=== PATIENT | female | born 1985 | race Caucasian/White ===

== ENCOUNTER → 2017-10-25 | Day surgery (SDC) | payer BC, OTHER ==
[~2017-10-25] MED LIST: Acetaminophen/oxyCODONE 325-5 MG Tab PO ONE; Bupivacaine 0.5% 30 ML SDV ONE; Dexamethasone 4 MG/ML SDV ONE; HYDROmorphone 0.5 MG/0.5 ML Syringe IVPUSH PRN; HYDROmorphone 1 MG/ML Syringe ONE; Ketorolac 30 MG/ML SDV ONE; Lactated Ringers 1,000 ML IV SCH; Lactated Ringers 1,000 ML ONE; Lidocaine 1%/Sod Bicarbonate in NS 8.4% 1 ML Syringe IV PRN; Metoclopramide 10 MG/2 ML SDV IVPUSH PRN; Midazolam 1 MG/ML 2 ML SDV ONE; Neostigmine Methylsulfate 10 MG/10 ML MDV ONE; Ondansetron 4 MG/2 ML SDV IVPUSH PRN; Ondansetron 4 MG/2 ML SDV ONE; Propofol 200 MG/20 ML SDV ONE; Rocuronium 50 MG/5 ML Vial ONE; Sodium Chloride 0.9% 10 ML Syringe FLUSH PRN; ceFAZolin 1 GM Vial ONE; fentaNYL 100 MCG/2 ML SDV IVPUSH PRN; fentaNYL 250 MCG/5 ML SDV ONE
--- NOTE | 2017-10-25 10:21 | PCM.PREANE ---
Preanesthetic Assessment - Anesthesia/Transfusion/Family Hx Anesthesia History: Prior Anesthesia Without Reaction Family History of Anesthesia Reaction: No Transfusion History: No Prior Transfusion(s) - Review of Systems General: No Symptoms Pulmonary: No Symptoms Cardiovascular: No Symptoms Gastrointestinal: No Symptoms Neurological: Other (migraines) Other: Reports: Thyroid Problems, Neck Pain, Depression, Anxiety - Physical Assessment NPO Status Date: 10/24/17 NPO Status Time: 22:30 Pulse: 89 O2 Sat by Pulse Oximetry: 97 Respiratory Rate: 16 Blood Pressure: 121/84 Temperature: 37.1 C Weight: 60 kg ASA Class: 2 Mental Status: Alert & Oriented x3 Airway Class: Mallampati = 2 Dentition: Reports: Normal Dentition Thyro-Mental Finger Breadths: 3 Mouth Opening Finger Breadths: 3 ROM/Head Extension: Full Lungs: Clear to Auscultation, Normal Respiratory Effort Cardiovascular: Regular Rate, Regular Rhythm - Lab Values: Laboratory Last Values WBC 8.59 K/mm3 (3.98-10.04) 10/24/17 12:06 RBC 5.19 M/mm3 (3.98-5.22) 10/24/17 12:06 Hgb 14.9 gm/L (11.2-15.7) 10/24/17 12:06 Hct 43.5 % (34.1-44.9) 10/24/17 12:06 MCV 83.8 fl (79.4-94.8) 10/24/17 12:06 MCH 28.7 pg (25.6-32.2) 10/24/17 12:06 MCHC 34.3 g/dl (32.2-35.5) 10/24/17 12:06 RDW Std Deviation 39.9 fL (36.4-46.3) 10/24/17 12:06 Plt Count 318 K/mm3 (182-369) 10/24/17 12:06 MPV 10.0 fl (9.4-12.3) 10/24/17 12:06 Neut % (Auto) 69.8 % (34.0-71.1) 10/24/17 12:06 Lymph % (Auto) 25.0 % (19.3-51.7) 10/24/17 12:06 [place] % (Auto) 4.2 % (4.7-12.5) L 10/24/17 12:06 Eos % (Auto) 0.6 (0.7-5.8) L 10/24/17 12:06 Baso % (Auto) 0.3 % (0.1-1.2) 10/24/17 12:06 Neut # (Auto) 5.99 K/mm3 (1.56-6.13) 10/24/17 12:06 Lymph # (Auto) 2.15 K/mm3 (1.18-3.74) 10/24/17 12:06 [place] # (Auto) 0.36 K/mm3 (0.24-0.36) 10/24/17 12:06 Eos # (Auto) 0.05 K/mm3 (0.04-0.36) 10/24/17 12:06 Baso # (Auto) 0.03 K/mm3 (0.01-0.08) 10/24/17 12:06 HCG, Quant < 1.0 mIU/mL 10/24/17 12:06 Blood Type A POSITIVE 10/24/17 12:06 - Allergies Allergies/Adverse Reactions: Allergies Allergy/AdvReac Type Severity Reaction Status Date / Time bacitracin Allergy Rash Verified 10/24/17 15:28 Penicillins AdvReac Vomiting Verified 10/24/17 15:28 - Blood Blood Available: No Product(s) Available: None - Anesthesia Plan Pre-Op Medication Ordered: None - Acknowledgements Anesthesia Type Planned: General Anesthesia Pt an Appropriate Candidate for the Planned Anesthesia: Yes Alternatives and Risks of Anesthesia Discussed w Pt/Guardian: Yes Pt/Guardian Understands and Agrees with Anesthesia Plan: Yes PreAnesthesia Questionnaire HEENT History: Reports: Impaired Vision, Other (See Below) Other HEENT History: wears glasses Cardiovascular History: Reports: None Respiratory History: Reports: None Gastrointestinal History: Reports: Chronic Constipation, GERD Genitourinary History: Reports: None 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: 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, 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 Other OB/BYN History: dyspareunia, intermenstrual bleeding, metorrhagia, pelvic pain, retroflexion of uterus---hysterectomy Musculoskeletal History: Reports: Neck Pain, Chronic Other Musculoskeletal History: foot surgery, diastasis recti, neck pain Neurological History: Reports: Migraines Psychiatric History: Reports: Anxiety Endocrine/Metabolic History: Reports: Hypothyroidism Hematologic History: Reports: None Immunologic History: Reports: None Oncologic (Cancer) History: Reports: Malignant Melanoma Dermatologic History: Reports: Melanoma - Past Surgical History HEENT Surgical History: Reports: None Cardiovascular Surgical History: Reports: None Respiratory Surgical History: Reports: None GI Surgical History: Reports: Hernia, Inguinal Female Surgical History: Reports: Section, Hysterectomy Male Surgical History: Reports: None Endocrine Surgical History: Reports: None Neurological Surgical History: Reports: Other (See Below) Other Neurological Surgeries/Procedures: cervical fusion Musculoskeletal Surgical History: Reports: ORIF, Other (See Below) Other Musculoskeletal Surgeries/Procedures:: right foot ankle sugery x2 Oncologic Surgical History: Reports: Other (See Below) Other Oncologic Surgeries/Procedures: melanoma removed Dermatological Surgical History: Reports: Skin Biopsy, Other (See Below) - SUBSTANCE USE Smoking Status *Q: Never Smoker Second Hand Smoke Exposure: No Recreational Drug Use History: No - HOME MEDS Home Medications: Home Meds Levothyroxine Sodium [Synthroid] 75 mcg PO DAILY 06/15/16 [History] Cyclobenzaprine [Flexeril] 10 mg PO TID PRN #20 tablet 12/09/16 [Rx] SUMAtriptan Succinate [Imitrex] 50 mg PO ASDIRECTED 10/24/17 [History] Sertraline [Zoloft] 50 mg PO DAILY 10/24/17 [History] - CURRENT (IN HOUSE) MEDS Current Meds: Current Medications Lactated Ringer's (Ringers, Lactated) 1,000 mls @ 125 mls/hr IV ASDIRECTED CRISSY Stop: 10/25/17 23:00 Lidocaine/Sodium Bicarbonate (Buffered Lidocaine 1% In Ns 8.4%) 0.25 ml IV ONETIME PRN PRN Reason: Prior to IV Start Stop: 10/25/17 18:00 Sodium Chloride (Saline Flush) 10 ml FLUSH ASDIRECTED PRN PRN Reason: Keep Vein Open Stop: 10/25/17 18:00 Discontinued Medications Cefazolin Sodium (Ancef) Confirm Administered Dose 2 gm .ROUTE .STK-MED ONE Stop: 10/25/17 08:50 Dexamethasone (Dexamethasone) Confirm Administered Dose 8 mg .ROUTE .STK-MED ONE Stop: 10/25/17 08:50 Fentanyl (Sublimaze) Confirm Administered Dose 250 mcg .ROUTE .STK-MED ONE Stop: 10/25/17 08:51 Hydromorphone HCl (Dilaudid) Confirm Administered Dose 1 mg .ROUTE .STK-MED ONE Stop: 10/25/17 08:50 Midazolam HCl (Versed 1 Mg/Ml) Confirm Administered Dose 2 mg .ROUTE .STK-MED ONE Stop: 10/25/17 08:50 Ondansetron HCl (Zofran) Confirm Administered Dose 4 mg .ROUTE .STK-MED ONE Stop: 10/25/17 08:50 Propofol (Diprivan 20 Ml) Confirm Administered Dose 200 mg .ROUTE .STK-MED ONE Stop: 10/25/17 08:50 Rocuronium [place] (Zemuron) Confirm Administered Dose 50 mg .ROUTE .STK-MED ONE Stop: 10/25/17 08:50
--- NOTE | 2017-10-25 13:09 | PCM.POSTAN ---
POST ANESTHESIA ASSESSMENT - MENTAL STATUS Mental Status: Alert, Oriented - VITAL SIGNS Pulse Rate: 120 SaO2: 100 Resp Rate: 16 Blood Pressure: 123/73 Temperature: 36.2 C - RESPIRATORY Respiratory Status: Respiratory Rate WNL, Airway Patent, O2 Saturation Stable, Supplemental Oxygen - CARDIOVASCULAR CV Status: Pulse Rate WNL, Blood Pressure Stable - GASTROINTESTINAL GI Status: No Symptoms - PAIN Pain Score: 4 (fentanyl and hydromorphone given) - POST OP HYDRATION Hydration Status: Adequate & Stable
--- NOTE | 2017-10-25 13:34 | PCM.OPNOTE ---
- General Post-Op/Procedure Note Date of Surgery/Procedure: 10/25/17 Operative Procedure(s): Laparoscopic left oophorectomy (76615) Pre Op Diagnosis: Pelvic pain, history of endometriosis previously diagnosed at laparoscopy in surgery. Post-Op Diagnosis: Same plus filmy adhesions of the left ovary Anesthesia Technique: General ET Tube Primary Surgeon: Reagan Devine Secondary Surgeon: Luis Irby Anesthesia Provider: Brigida Menchaca Worm Picker: Alona Carroll ([facility]) Reason Worm Picker Was Necessary: Asst. surgery, decrease comorbidity and co-mortality. Role of Worm Picker: Asst. surgery, decrease comorbidity and co-mortality. Fluid Replacement, Intraop: 1,800 Output, Urine Amount: 200 EBL in mLs: 10 Drain/Tube Comments:: None Complications: None Condition: Good Free Text/Narrative:: Patient was transported to the operating room and medical office building. SCDs in place and functioning prior surgery. Ancef 2 g given intravenously prior surgery. Patient was placed under general anesthesia with endotracheal intubation the low dorsal lithotomy position. Timeout performed confirming name date of and procedure as laparoscopy possible removal of one or both ovaries (the left ovary was removed the right ovary was not removed) the examination under anesthesia revealed no adnexal masses both ovaries were palpable. Larios catheter was placed gravity drainage after the patient was prepared and draped in sterile fashion. Sponge stick was placed in the vagina for assistance in manipulation if needed. It was removed at the end the procedure, As was a Larios catheter. The area of the planned umbilical incision was injected with 2 mL of 0.5% Marcaine without epinephrine and midline where prior incisions had been made was also injected with 2 mL of 0.5% Marcaine. 5 mm incision was made at the umbilicus the varies needle was introduced and pneumoperitoneum was obtained and the 5 mm port was then introduced. Prompt visualization of pelvic organs was accomplished the midline suprapubic incision was made 5 mm in width 5 mm trocar was introduced. The left and not right ovaries were examined. The right ovary was normal the corpus luteum cyst of the right ovary was noted. The left ovary had some filmy adhesions and one small cyst. Left flank incision was then made by transilluminating the abdomen injecting 2 mL of 0.5% Marcaine without epinephrine and placing the 5 mm port on the left side. The left ovary was grasp and utilizing the Enseal the left ovary was removed. The right ovary was not removed. The liver and gallbladder were visualized the appendix could not be visualized. Hemostasis was normal in the area of the left oophorectomy. To remove the left ovary a 10 mm trocar was then introduced at the suprapubic incision extending the incision by 5 mm. Introducing the Endo bag the ovary was placed into the Endobag and the ovary was removed through the suprapubic incision. Utilizing Wagner Nava closure for the anterior fascia and peritoneum introducing 0 Vicryl and the anterior fascia was closed to prevent hernia formation hopefully. No bleeding. The left flank trocar was then removed and no bleeding the pneumoperitoneum was reduced. The umbilical trocar was removed. The 3 incisions were closed with 3-0 Monocryl subcuticular suture the suprapubic incision prior to closure with the 3-0 Monocryl a interrupted suture of 0 Monocryl was placed in the subcutaneous tissue. Sponge needle pack asthma sharp count were correct 2. The Larios catheter was removed. The sponge stick that had been placed into the vagina for manipulation was removed as well. Patient was transported postanesthesia care unit in satisfactory condition. At 1300 hrs. a talked with Jose Roberto and her and gave him a report of her surgery and all questions answered to his voiced satisfaction. Photos taken total of 11. Image 001 through 005 were of the left ovary showing filmy adhesions simple cyst no endometriosis. Image 006 is the right ovary. The right ovary was not removed. Image 007 shows the liver and gallbladder with no perihepatic adhesions. Image 008 shows area of the appendix but the appendix was not able to be visualized. Image 009 shows the operative site after removal of the left ovary with no bleeding. Image 010 shows the left flank incision with no bleeding after removal of the trocar. Image 011 shows the suprapubic incision after closure with no bleeding. Patient given prescription for Percocet 5/325 dispense 15 take 1 by mouth every 6 hours when necessary pain
[2017-10-25 15:48] VITALS: BP 129/76
== END | disposition home or self-care (01) ==
LOC: JD.SDS 09:53
PROVIDERS: ATTEND Obstetrics & Gynecology
DX: N83.292 Other ovarian cyst, left side (principal); N80.9 Endometriosis, unspecified; K59.09 Other constipation; K21.9 Gastro-esophageal reflux disease without esophagitis; G43.909 Migraine, unspecified, not intractable, without status migrainosus; M62.08 Separation of muscle (nontraumatic), other site; N94.10 Unspecified dyspareunia; F41.9 Anxiety disorder, unspecified; E03.9 Hypothyroidism, unspecified; Z88.0 Allergy status to penicillin; Z88.8 Allergy status to other drugs, medicaments and biological substances; Z79.899 Other long term (current) drug therapy; Z85.820 Personal history of malignant melanoma of skin; Z83.3 Family history of diabetes mellitus; Z90.710 Acquired absence of both cervix and uterus; Z98.890 Other specified postprocedural states
CPT/HCPCS: 36415; 58661; 84702; 85025; 86900; 86901; A9270; J0690; J1100; J1170; J1885; J2250; J2405; J2710; J3010; J7120; 00840; J2704

== ENCOUNTER 2018-01-02 18:44 | Emergency (ER) | payer BC ==
[2018-01-02 19:07] VITALS: BP 147/98
[2018-01-02] MEDS ORDERED: Sodium Chloride 0.9% 10 ML Syringe FLUSH PRN (19:55)
--- NOTE | 2018-01-02 20:03 | EDM.PDOC ---
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 Patient states at approximately 1630 developed sudden onset of throbbing sharp pain to the left adnexa with sensation she urinated all over herself. Upon examination of her panty liner there was greenish discharge with blood. Patient states she saturated a pad every hour for the next few hours that has slowly tapered down. Currently patient continues to have severe pain to the left adnexal region. She was informed by Dr. 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 Bleeding is scant at this point. No abnormal discharge at this point. She does have a history of endometriosis with partial hysterectomy 2 years ago. This past October patient had her left ovary removed. Right ovary remains. Patient does have a history of adhesions. Pain is currently a 8 out of 10. Pain is worse with moving and also going to the bathroom. She denies any fever, nausea/vomiting, diarrhea, or history of STDs. Preg history includes 3 para 2 with one miscarriage. Treatments MUTUAL FUND MANAGER: Reports: NSAIDS Pelvic Pain Score (Numeric/FACES): 8 - Related Data Allergies Allergy/AdvReac Type Severity Reaction Status Date / Time bacitracin Allergy Rash Verified 01/02/18 19:07 Penicillins AdvReac Vomiting Verified 01/02/18 19:07 Home Meds: Home Meds Levothyroxine Sodium [Synthroid] 75 mcg PO DAILY 06/15/16 [History] SUMAtriptan Succinate [Imitrex] 50 mg PO ASDIRECTED 10/24/17 [History] Sertraline [Zoloft] 50 mg PO DAILY 10/24/17 [History] Cyclobenzaprine [Flexeril] 10 mg PO TID PRN #90 tablet 10/25/17 [Rx] oxyCODONE HCl/Acetaminophen [Percocet 5-325 mg Tablet] 1 each PO Q6H #15 tablet 10/25/17 [Rx] Past Medical History HEENT History: Reports: Other (See Below) Other HEENT History: wears glasses Cardiovascular History: Reports: None Respiratory History: Reports: None Gastrointestinal History: Reports: Chronic Constipation, GERD Genitourinary History: Reports: None 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 Other OB/BYN History: dyspareunia, intermenstrual bleeding, metorrhagia, pelvic pain, retroflexion of uterus---hysterectomy done to fix problems Musculoskeletal History: Reports: Neck Pain, Chronic Other Musculoskeletal History: foot surgery Neurological History: Reports: Migraines Psychiatric History: Reports: Anxiety Endocrine/Metabolic History: Reports: Hypothyroidism Hematologic History: Reports: None Immunologic History: Reports: None Oncologic (Cancer) History: Reports: Malignant Melanoma Dermatologic History: Reports: Melanoma - Past Surgical History Cardiovascular Surgical History: Reports: None Respiratory Surgical History: Reports: None GI Surgical History: Reports: None Other GI Surgeries/Procedures: inguinal hernia repair Female Surgical History: Reports: Section, Hysterectomy, Other (See Below) Other Female Surgeries/Procedures: cervix removed, fallopian tubes removed, left ovary removed Endocrine Surgical History: Reports: None Neurological Surgical History: Reports: None Oncologic Surgical History: Reports: Other (See Below) Other Oncologic Surgeries/Procedures: melanoma removed Dermatological Surgical History: Reports: Skin Biopsy, Other (See Below) Social & Family History - Family History Family Medical History: Noncontributory - Tobacco Use Smoking Status *Q: Never Smoker Second Hand Smoke Exposure: No - Caffeine Use Caffeine Use: Reports: None - Recreational Drug Use Recreational Drug Use: No Drug Use in Last 12 Months: No ED ROS GENERAL - Review of Systems Review Of Systems: ROS reveals no pertinent complaints other than HPI. ED EXAM, RENAL/ - Physical Exam Exam: See Below Exam Limited By: No Limitations General Appearance: Alert, WD/WN, Mild Distress Ears: Hearing Grossly Normal Nose: Normal Inspection Throat/Mouth: Normal Voice, No Airway Compromise Neck: Normal Inspection, Supple Respiratory/Chest: No Respiratory Distress, Lungs Clear, Normal Breath Sounds, No Accessory Muscle Use Cardiovascular: Normal Peripheral Pulses, Regular Rate, Rhythm GI/Abdominal: Normal Bowel Sounds, Soft, Tender (left adnexa) Back Exam: Normal Inspection. No: CVA Tenderness (L), CVA Tenderness (R) Neurological: Alert, Oriented, CN II-XII Intact, Normal Cognition, No Motor/ Sensory Deficits Psychiatric: Normal Affect, Normal Mood Skin Exam: Warm, Dry, Intact, Normal Color, No Rash Course - Vital Signs Last Recorded V/S: Last Vital Signs Temp 98.4 F 01/02/18 19:00 Pulse 98 01/02/18 19:00 Resp 18 01/02/18 19:00 BP 147/98 H 01/02/18 19:00 Pulse Ox 100 01/02/18 19:00 - Orders/Labs/Meds Orders: Active Orders 24 hr Category Date Time Status Peripheral IV Care [RC] . DIRECTED Care 01/02/18 19:55 Active Pelvis Non OB Ltd [US] Stat Exams 01/02/18 19:55 Taken Sodium Chloride 0.9% [Saline Flush] Med 01/02/18 19:55 Active 10 ml FLUSH ASDIRECTED PRN Peripheral IV Insertion Adult [OM.PC] Stat Oth 01/02/18 19:53 Ordered Medication Orders Sodium Chloride (Saline Flush) 10 ml FLUSH ASDIRECTED PRN PRN Reason: Keep Vein Open Last Admin: 01/02/18 20:17 Dose: 10 ml Labs: Laboratory Tests 01/02/18 01/02/18 01/02/18 Range/Units 20:21 20:45 20:45 WBC 9.60 (3.98-10.04) K/mm3 RBC 4.78 (3.98-5.22) M/mm3 Hgb 13.7 (11.2-15.7) gm/L Hct 39.7 (34.1-44.9) % MCV 83.1 (79.4-94.8) fl MCH 28.7 (25.6-32.2) pg MCHC 34.5 (32.2-35.5) g/dl RDW Std Deviation 41.9 (36.4-46.3) fL Plt Count 262 (182-369) K/mm3 MPV 10.7 (9.4-12.3) fl Neut % (Auto) 66.6 (34.0-71.1) % Lymph % (Auto) 27.1 (19.3-51.7) % [place] % (Auto) 5.3 (4.7-12.5) % Eos % (Auto) 0.5 L (0.7-5.8) Baso % (Auto) 0.3 (0.1-1.2) % Neut # (Auto) 6.39 H (1.56-6.13) K/mm3 Lymph # (Auto) 2.60 (1.18-3.74) K/mm3 [place] # (Auto) 0.51 H (0.24-0.36) K/mm3 Eos # (Auto) 0.05 (0.04-0.36) K/mm3 Baso # (Auto) 0.03 (0.01-0.08) K/mm3 Sodium 141 (136-145) mEq/L Potassium 3.5 (3.5-5.1) mEq/L Chloride 105 (98-107) mEq/L Carbon Dioxide 23 (21-32) mEq/L Anion Gap 16.5 H (5-15) BUN 7 (7-18) mg/dL Creatinine 0.8 (0.55-1.02) mg/dL Est Cr Clr Drug Dosing 72.52 mL/min Estimated GFR (MDRD) > 60 (>60) mL/min BUN/Creatinine Ratio 8.8 L (14-18) Glucose 101 (74-106) mg/dL Calcium 8.9 (8.5-10.1) mg/dL Total Bilirubin 0.2 (0.2-1.0) mg/dL AST 16 (15-37) U/L ALT 28 (14-59) U/L Alkaline Phosphatase 80 (46-116) U/L C-Reactive Protein < 0.2 (<1.0) mg/dL Total Protein 7.5 (6.4-8.2) g/dl Albumin 4.1 (3.4-5.0) g/dl Globulin 3.4 gm/dL Albumin/Globulin Ratio 1.2 (1-2) Urine Color Yellow (Yellow) Urine Appearance Clear (Clear) Urine pH 6.0 (5.0-8.0) Ur Specific [place] 1.020 (1.005-1.030) Urine Protein Negative (Negative) Urine Glucose (UA) Negative (Negative) Urine Ketones Negative (Negative) Urine Occult Blood Negative (Negative) Urine Nitrite Negative (Negative) Urine Bilirubin Negative (Negative) Urine Urobilinogen 0.2 (0.2-1.0) Ur Leukocyte Esterase Trace H (Negative) Urine RBC 0-5 (0-5) /hpf Urine WBC 0-5 (0-5) /hpf Ur Epithelial Cells 0-5 (0-5) /hpf Urine Bacteria Few (FEW) /hpf Urine Mucus Many H (FEW) /hpf Meds: Medications Generic Name Dose Route Start Last Admin Trade Name Lis PRN Reason Stop Dose Admin Sodium Chloride 10 ml 01/02/18 19:55 01/02/18 20:17 Saline Flush FLUSH 10 ml ASDIRECTED PRN Administration Keep Vein Open Discontinued Medications Generic Name Dose Route Start Last Admin Trade Name Lis PRN Reason Stop Dose Admin Hydromorphone HCl 0.5 mg 01/02/18 19:57 01/02/18 21:49 Dilaudid IVPUSH 01/02/18 19:58 0.5 mg ONETIME ONE Administration Hydromorphone HCl 0.5 mg 01/02/18 21:42 01/02/18 21:51 Dilaudid IVPUSH 01/02/18 21:43 Not Given ONETIME ONE Hydromorphone HCl Confirm 01/02/18 21:53 01/02/18 22:25 Dilaudid Administered 01/02/18 21:54 Not Given Dose 0.5 mg .ROUTE .STK-MED ONE Oxycodone HCl 5 mg 01/02/18 22:25 01/02/18 22:31 Oxycodone PO 01/02/18 22:26 5 mg ONETIME ONE Administration - Re-Assessments/Exams Free Text/Narrative Re-Assessment/Exam: IV established with dilaudid 0.5mg IVP. Labs ordered include: CBC,C14, CRP, and UA. Ordered transvaginal non ob ultrasound. Vaginal exam with speculum. Vaginal cuff is intact with no obvious source of bleeding or abnormal vaginal discharge. No abnormal discharge or blood present. Labs reviewed: CBC essentially normal. Chemistry panel was essentially normal as well. CRP within normal limits. Ultrasound obtained. Patient complains of pain post ultrasound. Dilaudid 0.5 mg IVP ordered. UA trace leukocyte Esterace with your mucus present. No additional concerning findings. 01/02/18 21:57 Ultrasound impression: Hysterectomy. Status post left oophorectomy. 3 cm right ovarian simple cyst. Discuss results with the patient. Will discharge patient home with instructions as documented. She'll see Dr. Devine tomorrow at 1300 hrs. 01/02/18 22:26 We have changed the Dilaudid to oxycodone 5 mg by mouth. Departure - Departure Time of Disposition: 21:58 Disposition: Home, Self-Care 01 Condition: Good Clinical Impression: Adnexal pain, Vaginal discharge, Vaginal bleeding - Discharge Information Instructions: Pelvic Pain, Female Referrals: Reagan Devine MD [Physician] - Forms: ED Department Discharge Additional Instructions: As discussed unclear etiology current complaint. Ultrasound and labs were essentially normal. Speculum exam did not reveal any concerning findings. At this point will have you take Tylenol and ibuprofen in alternating fashion for pain. Utilize [place] one tab every 6 hours as needed for severe pain. Do not take with Tylenol. No driving this evening or while taking the [place]. Follow-up with Dr. Devine as scheduled tomorrow at 1300 hrs. Return to the ED if you develop any new or worsening symptoms. - My Orders Last 24 Hours: My Active Orders 01/02/18 19:53 Peripheral IV Insertion Adult [OM.PC] Stat 01/02/18 19:55 Peripheral IV Care [RC] . DIRECTED Pelvis Non OB Ltd [US] Stat Sodium Chloride 0.9% [Saline Flush] 10 ml FLUSH ASDIRECTED PRN - Assessment/Plan Last 24 Hours: My Active Orders 01/02/18 19:53 Peripheral IV Insertion Adult [OM.PC] Stat 01/02/18 19:55 Peripheral IV Care [RC] . DIRECTED Pelvis Non OB Ltd [US] Stat Sodium Chloride 0.9% [Saline Flush] 10 ml FLUSH ASDIRECTED PRN
[2018-01-02] MEDS: HYDROmorphone 0.5 MG/0.5 ML SYRINGE IVPUSH ONE ×2 (20:17→21:49)
[2018-01-02] MEDS ORDERED: HYDROmorphone 1 MG/ML Syringe IVPUSH ONE (21:42)
[2018-01-02] MEDS ORDERED: HYDROmorphone 0.5 MG/0.5 ML SYRINGE ONE (21:53)
[2018-01-02] MEDS ORDERED: oxyCODONE 5 MG Tab PO ONE (22:25)
--- NOTE | 2018-01-03 07:13 | US ---
Pelvic ultrasound: Multiple real-time images of the pelvis were obtained transvaginally. Comparison: Previous hysterectomy is noted. Left ovary not visualized with note stating previous oophorectomy. Simple cyst is noted within the right ovary measuring 3.0 cm. No free fluid is seen. Measurements: Right ovary: 5.2 x 1.8 x 3.2 cm Impression: 1. 3.0 cm simple cyst within the right ovary. No free fluid is seen. 2. Prior hysterectomy and left oophorectomy. Diagnostic code #2 I agree with preliminary report issued by [facility] ([facility] preliminary report dictated on 01/02/18, 10:51 PM Central Time)
== END 2018-01-02 22:40 | disposition home or self-care (01) ==
LOC: JD.ED 18:44
DX: N93.9 Abnormal uterine and vaginal bleeding, unspecified (principal); N89.8 Other specified noninflammatory disorders of vagina; R10.2 Pelvic and perineal pain; Z90.710 Acquired absence of both cervix and uterus; E03.9 Hypothyroidism, unspecified; Z79.899 Other long term (current) drug therapy; Z88.0 Allergy status to penicillin; Z88.1 Allergy status to other antibiotic agents
CPT/HCPCS: 36415; 76857; 80053; 81001; 85025; 86140; 96374; 96376; 99284; A9270; J1170; J7050

== ENCOUNTER 2018-01-06 19:04 | Emergency (ER) | payer BC ==
[2018-01-06 19:30] VITALS: BP 117/79
[2018-01-06] MEDS ORDERED: Ketorolac 60 MG/2 ML SDV IM ONE (20:28)
--- NOTE | 2018-01-06 20:29 | EDM.PDOC ---
ED HPI GENERAL MEDICAL PROBLEM - General Chief Complaint: Abdominal Pain Stated Complaint: poss left side cyst ruptured Time Seen by Provider: 01/06/18 19:27 Source of Information: Reports: Patient, Old Records History Limitations: Reports: No Limitations - History of Present Illness INITIAL COMMENTS - FREE TEXT/NARRATIVE: Medical records indicate that the patient was seen by Jad Buster in this ED on 01/02/2018 with a complaint of left adnexal pain. She reported at time that she had a greenish and bloody vaginal discharge. She stated that she had a history of endometriosis and adhesions, status post a partial hysterectomy 2 years ago, followed by a left oophorectomy this past October 2017. Her right ovary remains. The record indicates that she was tender to her left pelvis. Workup included a CBC, CMP, C-reactive protein, and urinalysis, all of which were completely normal. On pelvic exam, despite the patient's claim of having a greenish and bloody discharge, her examination was completely normal with no discharge, blood, or visible source of bleeding. A transvaginal ultrasound found a 3.0 cm simple cyst within the right ovary, with no free fluid seen and noted a prior hysterectomy with left oophorectomy. The patient received a total of 1.5 mg of IV Dilaudid and 5 mg of oxycodone before being discharged home with a prescription for 10 tablets of [place] 5/325. She had an appointment to follow-up with Dr. Devine the following day, on 01/03/2018, at 13:00. The patient now returns to the ED stating that she continues to have left pelvic pain, and is concerned that she has ruptured an ovarian cyst. She states that she did not follow-up with Dr. Devine, and that she has an appointment to see Dr. Soto on , and Dr. Thompson, a Hearing Aid Consultant in [place], on 01/23/2018. I pointed out to the patient that she cannot have a left ovarian cyst, as she does not have a left ovary. She stated that she was told by Mr. Goins that he had found a cyst at the vaginal surgical line, and that he believed that it was this cyst that had ruptured and bled. Mr. Goins's medical record does not indicate any of that. Additionally, as luck would have it, Mr. Goins is working tonight and he confirms that he found no abnormality on the patient's pelvic exam on 01/02/2018, and he feels that the patient was drug-seeking. Left Pelvic Pain Score (Numeric/FACES): 8 - Related Data Allergies Allergy/AdvReac Type Severity Reaction Status Date / Time bacitracin Allergy Rash Verified 01/02/18 19:07 Penicillins AdvReac Vomiting Verified 01/02/18 19:07 Home Meds: Home Meds Levothyroxine Sodium [Synthroid] 100 mcg PO DAILY 06/15/16 [History] ALPRAZolam [Xanax] 0.5 mg PO QID 01/06/18 [History] Methocarbamol [Robaxin] 500 - 1,000 mg PO QID PRN 01/06/18 [History] Topiramate 50 mg PO BID 01/06/18 [History] Past Medical History HEENT History: Reports: Other (See Below) Other HEENT History: wears glasses Gastrointestinal History: Reports: GERD SIDE BOSS History: Reports: 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 Neurological History: Reports: Migraines Psychiatric History: Reports: Anxiety Endocrine/Metabolic History: Reports: Hypothyroidism Oncologic (Cancer) History: Reports: Malignant Melanoma - Past Surgical History GI Surgical History: Reports: Hernia, Inguinal Female Surgical History: Reports: Section, Hysterectomy, Oophorectomy (left, 10/25/2017) Oncologic Surgical History: Reports: Other (See Below) (Melanoma excised) Dermatological Surgical History: Reports: Skin Biopsy Social & Family History - Family History Family Medical History: Noncontributory - Tobacco Use Smoking Status *Q: Never Smoker Second Hand Smoke Exposure: No - Caffeine Use Caffeine Use: Reports: None - Alcohol Use Alcohol Use History: No - Recreational Drug Use Recreational Drug Use: No ED ROS GENERAL - Review of Systems Review Of Systems: ROS reveals no pertinent complaints other than HPI. ED EXAM, RENAL/ - Physical Exam Exam: See Below Exam Limited By: No Limitations General Appearance: Alert, WD/WN, No Apparent Distress Eye Exam: Bilateral Eye: Normal Inspection Ears: Normal External Exam, Hearing Grossly Normal Nose: Normal Inspection, No Blood Throat/Mouth: Normal Inspection, Normal Lips, Normal Voice, No Airway Compromise Head: Atraumatic, Normocephalic Neck: Normal Inspection, Full Range of Motion Respiratory/Chest: No Respiratory Distress, Lungs Clear, Normal Breath Sounds, No Accessory Muscle Use Cardiovascular: Normal Peripheral Pulses, Regular Rate, Rhythm, No Gallop, No JVD, No Murmur, No Rub GI/Abdominal: Normal Bowel Sounds, Soft, No Organomegaly, No Distention, No Abnormal Bruit, No Mass, Tender (Generalized, non-focal.) Rectal (Female) Exam: Deferred Back Exam: Normal Inspection, Full Range of Motion. No: CVA Tenderness (L), CVA Tenderness (R) Extremities: Normal Inspection, Normal Range of Motion, No Pedal Edema, Normal Capillary Refill Neurological: Alert, Oriented, Normal Cognition, No Motor/Sensory Deficits Psychiatric: Normal Affect Skin Exam: Warm, Dry, Intact, Normal Color, No Rash Course - Vital Signs Last Recorded V/S: Last Vital Signs Temp 37.1 C 01/06/18 19:28 Pulse 77 01/06/18 19:28 Resp 20 01/06/18 19:28 BP 117/79 01/06/18 19:28 Pulse Ox 100 01/06/18 19:28 - Orders/Labs/Meds Labs: Laboratory Tests 01/06/18 01/06/18 Range/Units 20:22 20:22 WBC 7.07 (3.98-10.04) K/mm3 RBC 4.58 (3.98-5.22) M/mm3 Hgb 13.2 (11.2-15.7) gm/L Hct 37.6 (34.1-44.9) % MCV 82.1 (79.4-94.8) fl MCH 28.8 (25.6-32.2) pg MCHC 35.1 (32.2-35.5) g/dl RDW Std Deviation 40.7 (36.4-46.3) fL Plt Count 240 (182-369) K/mm3 MPV 10.7 (9.4-12.3) fl Neutrophils % (Manual) 53 (40-60) % Band Neutrophils % 0 (0-10) % Lymphocytes % (Manual) 44 H (20-40) % Atypical Lymphs % 0 % Monocytes % (Manual) 2 (2-10) % Eosinophils % (Manual) 1 (0.7-5.8) % Basophils % (Manual) 0 L (0.1-1.2) Platelet Estimate Adequate RBC Morph Comment Normal Sodium 140 (136-145) mEq/L Potassium 3.3 L (3.5-5.1) mEq/L Chloride 106 (98-107) mEq/L Carbon Dioxide 23 (21-32) mEq/L Anion Gap 14.3 (5-15) BUN 9 (7-18) mg/dL Creatinine 0.8 (0.55-1.02) mg/dL Est Cr Clr Drug Dosing 72.52 mL/min Estimated GFR (MDRD) > 60 (>60) mL/min BUN/Creatinine Ratio 11.3 L (14-18) Glucose 111 H (74-106) mg/dL Calcium 8.7 (8.5-10.1) mg/dL Total Bilirubin 0.2 (0.2-1.0) mg/dL AST 17 (15-37) U/L ALT 25 (14-59) U/L Alkaline Phosphatase 65 (46-116) U/L Total Protein 6.6 (6.4-8.2) g/dl Albumin 3.6 (3.4-5.0) g/dl Globulin 3.0 gm/dL Albumin/Globulin Ratio 1.2 (1-2) Lipase 172 (73-393) U/L Meds: Medications Discontinued Medications Generic Name Dose Route Start Last Admin Trade Name Freq PRN Reason Stop Dose Admin Ketorolac Tromethamine 60 mg 01/06/18 20:28 01/06/18 20:37 Toradol IM 01/06/18 20:29 60 mg ONETIME ONE Administration - Re-Assessments/Exams Free Text/Narrative Re-Assessment/Exam: 01/06/18 20:29 The patient requested pain medication prior to her pelvic exam. I have ordered Toradol 60 mg IM. 01/06/18 21:13 Notified by Cruzito RICHTER that the patient appears to have eloped from the ED without notification, following her Toradol injection, but prior to her pelvic exam. Based on her history, and by my conversation with Jad Goins, it appears that the patient was drug-seeking. Departure - Departure Time of Disposition: 21:14 Disposition: Eloped 07 Condition: Undetermined Clinical Impression: Drug-seeking behavior - Discharge Information
== END 2018-01-06 21:00 | disposition left against medical advice (07) ==
LOC: JD.ED 19:04
DX: Z76.5 Malingerer [conscious simulation] (principal); R10.2 Pelvic and perineal pain; E03.9 Hypothyroidism, unspecified; G43.909 Migraine, unspecified, not intractable, without status migrainosus; Z88.0 Allergy status to penicillin; Z88.1 Allergy status to other antibiotic agents; Z79.899 Other long term (current) drug therapy; Z90.710 Acquired absence of both cervix and uterus
CPT/HCPCS: 36415; 80053; 83690; 85025; 96372; 99284; J1885; 99283

== ENCOUNTER 2018-04-23 20:43 | Emergency (ER) | payer BC, OTHER ==
[2018-04-23 21:12] VITALS: BP 114/76
[2018-04-23] MEDS ORDERED: diphenhydrAMINE 50 MG/ML SDV IM ONE (21:29)
[2018-04-23] MEDS ORDERED: Haloperidol Lactate 5 MG/ML SDV IM ONE (21:29)
[2018-04-23] MEDS ORDERED: Ondansetron 4 MG Tab.DIS PO ONE (21:29)
--- NOTE | 2018-04-23 21:42 | EDM.PDOC ---
ED HPI GENERAL MEDICAL PROBLEM - General Chief Complaint: Headache Stated Complaint: HEADACHE Time Seen by Provider: 04/23/18 21:08 Source of Information: Reports: Patient History Limitations: Reports: No Limitations - History of Present Illness INITIAL COMMENTS - FREE TEXT/NARRATIVE: Patient is a 32-year-old female with a history of migraines who presents to the ED complaining of right sided retro-orbital migraine. Patient states this has been going on and off for quite some time. Headache was gradual onset. Localized with no radiation. There's been no vision changes. No photophobia. Only minimal hyperacusis. No nausea/vomiting, numbness or tingling, weakness to the upper or lower extremities, difficulty walking, fever and/or other concerning focal neurological deficits. She denies any sinus congestion, runny nose, and or sore throat. No ear pain noted. 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 She was evaluated on 2 separate occasions in the E.D. while visiting [place] this week for similar complaints. Headache is consistent with previous episodes. She denies any activities or trauma that precipitated this headache. She took three butyl bromide tabs today.Normally is only supposed to take 1 tab every day but she has taken 3 today. In addition she takes clonazepam 0.5 mg twice a day. Xanax 0.5 mg when necessary. Zoloft, topiramate, BuSpar, Synthroid, and also Robaxin. Patient has a history of melanoma. She is scheduled to have a MRI of the brain obtained on April 26. This is in preparation to have an Botox injections. In addition PET scan is scheduled for this next Tuesday for routine surveillance for melanoma. She's also in a pain contract with Dr. Alatorre. Treatments SERVICE ASSOCIATE: Reports: Other (see below) Other Treatments SERVICE ASSOCIATE: home meds Right Headache Pain Score (Numeric/FACES): 9 - Related Data Allergies Allergy/AdvReac Type Severity Reaction Status Date / Time bacitracin Allergy Rash Verified 04/23/18 22:00 ketorolac [From Toradol] Allergy Hives Verified 04/23/18 21:17 [id number] [From Nubain] Allergy Hives Verified 04/23/18 21:17 tramadol Allergy Hives Verified 04/23/18 21:17 Penicillins AdvReac Vomiting Verified 04/23/18 22:00 Home Meds: Home Meds Levothyroxine Sodium [Synthroid] 50 mcg PO DAILY 06/15/16 [History] ALPRAZolam [Xanax] 0.5 mg PO ASDIRECTED 01/06/18 [History] Methocarbamol [Robaxin] 500 - 1,000 mg PO QID PRN 01/06/18 [History] Topiramate 150 mg PO BID 01/06/18 [History] Cholecalciferol (Vitamin D3) [Vitamin D] 0 mg PO WEEKLY 04/23/18 [History] ClonazePAM [KlonoPIN] 0.5 mg PO BID 04/23/18 [History] PHENobarbital 15 mg PO BEDTIME 04/23/18 [History] Sertraline [Zoloft] 100 mg PO DAILY 04/23/18 [History] busPIRone [Buspar] 50 mg PO TID 04/23/18 [History] Past Medical History HEENT History: Reports: Other (See Below) Other HEENT History: wears glasses Cardiovascular History: Reports: None Respiratory History: Reports: None Gastrointestinal History: Reports: GERD Genitourinary History: Reports: None 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 TECHNICIAN History: Reports: 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 Other OB/BYN History: dyspareunia, intermenstrual bleeding, metorrhagia, pelvic pain, retroflexion of uterus---hysterectomy done to fix problems Musculoskeletal History: Reports: Neck Pain, Chronic Other Musculoskeletal History: foot surgery Neurological History: Reports: Migraines Psychiatric History: Reports: Anxiety Endocrine/Metabolic History: Reports: Hypothyroidism Hematologic History: Reports: None Immunologic History: Reports: None Oncologic (Cancer) History: Reports: Malignant Melanoma Dermatologic History: Reports: Melanoma - Past Surgical History Cardiovascular Surgical History: Reports: None Respiratory Surgical History: Reports: None GI Surgical History: Reports: Hernia, Inguinal Female Surgical History: Reports: Section, Hysterectomy, Oophorectomy Oncologic Surgical History: Reports: Other (See Below) Dermatological Surgical History: Reports: Skin Biopsy Social & Family History - Family History Family Medical History: Noncontributory - Tobacco Use Smoking Status *Q: Never Smoker - Caffeine Use Caffeine Use: Reports: Coffee Caffeine Use Comment: maybe a cup per week - Recreational Drug Use Recreational Drug Use: Yes Recreational Drug Type: Reports: Cocaine, Ecstasy, Marijuana/Hashish Other Recreational Drug Type: last used about 10 yrs ago ED [facility] - Review of Systems Review Of Systems: ROS reveals no pertinent complaints other than HPI. - Physical Exam Exam: See Below Exam Limited By: No Limitations General Appearance: Alert, WD/WN, Mild Distress Eye Exam: Bilateral Eye: EOMI, Nystagmus (none noted), PERRL Ears: Hearing Grossly Normal Nose: Normal Inspection Throat/Mouth: Normal Voice, No Airway Compromise Neck: Normal Inspection, Supple Respiratory/Chest: No Respiratory Distress, Lungs Clear, Normal Breath Sounds, No Accessory Muscle Use, Chest Non-Tender Cardiovascular: Normal Peripheral Pulses, Regular Rate, Rhythm GI/Abdominal: Normal Bowel Sounds, Soft, Non-Tender, No Organomegaly, No Distention Neuro Exam (Abbreviated): Alert, Oriented, CN II-XII Intact, Normal Cognition, Normal Gait, No Motor/Sensory Deficits, Other (Cerebellar function intact including: Rapid alternating movements, [id number]. With finger to nose testing left side was no issues. On the right side initially patient was off to the right of her nose. With multiple testing patient was able to touch her nose with no issues. There is no weakness discrepancy as to the upper or lower extremities. No facial droop, slurred speech, difficult to swelling, tongue deviation, or uvula deviation.) Back Exam: Normal Inspection Psychiatric: Normal Affect, Normal Mood Skin Exam: Warm, Dry, Intact, Normal Color Course - Vital Signs Last Recorded V/S: Last Vital Signs Temp 98.9 F 04/23/18 21:10 Pulse 75 04/23/18 21:10 Resp 20 04/23/18 21:10 BP 114/76 04/23/18 21:10 Pulse Ox 100 04/23/18 21:10 - Orders/Labs/Meds Meds: Medications Discontinued Medications Generic Name Dose Route Start Last Admin Trade Name Freq PRN Reason Stop Dose Admin Diphenhydramine HCl 50 mg 04/23/18 21:29 04/23/18 21:41 Benadryl IM 04/23/18 21:30 50 mg ONETIME ONE Administration Haloperidol Lactate 5 mg 04/23/18 21:29 04/23/18 21:41 Haldol IM 04/23/18 21:30 5 mg ONETIME ONE Administration Ondansetron HCl 4 mg 04/23/18 21:29 04/23/18 21:41 Zofran Odt PO 04/23/18 21:30 4 mg ONETIME ONE Administration - Re-Assessments/Exams Free Text/Narrative Re-Assessment/Exam: I have ordered Haldol 5 mg IM, Benadryl 50 mg IM, along with Zofran 4 mg ODT. She is allergic to Toradol thus not ordered. 2234 Reassessment, patients headache is improving. She is ready to be discharged home. Departure - Departure Time of Disposition: 22:48 Disposition: Home, Self-Care 01 Condition: Fair Clinical Impression: Migraine - Discharge Information Instructions: Migraine Headache, [id number] Referrals: Jaskaran Bernal MD [Primary Care Provider] - Forms: ED Department Discharge Additional Instructions: Suggest going home find a dark room to sleep with no distractions. Follow-up with your primary care provider for reevaluation this week. Return to the ED if you develop any new or worsening symptoms. Do not drive this evening since receiving a sedative medication.
== END 2018-04-23 23:08 | disposition home or self-care (01) ==
LOC: JD.ED 20:43
DX: G43.909 Migraine, unspecified, not intractable, without status migrainosus (principal); K21.9 Gastro-esophageal reflux disease without esophagitis; E03.9 Hypothyroidism, unspecified; F41.9 Anxiety disorder, unspecified; Z79.899 Other long term (current) drug therapy; Z88.5 Allergy status to narcotic agent; Z88.0 Allergy status to penicillin; Z88.8 Allergy status to other drugs, medicaments and biological substances; Z88.1 Allergy status to other antibiotic agents
CPT/HCPCS: 96372; 99283; A9270; J1200; J1630

== ENCOUNTER 2018-07-19 06:15 | Emergency (ER) | payer BC ==
[2018-07-19 06:29] VITALS: BP 108/75
[2018-07-19] MEDS ORDERED: Dextrose 5%-0.9% NaCl 1,000 ML IV SCH (07:00)
[2018-07-19] MEDS ORDERED: Metoclopramide 10 MG/2 ML SDV IVPUSH ONE (07:01)
[2018-07-19] MEDS ORDERED: diphenhydrAMINE 50 MG/ML SDV IVPUSH ONE ×2 (07:02→08:35)
[2018-07-19] MEDS ORDERED: HYDROmorphone 1 MG/ML Syringe IVPUSH ONE (07:03)
--- NOTE | 2018-07-19 07:05 | EDM.PDOC ---
ED HPI GENERAL MEDICAL PROBLEM - General Chief Complaint: Headache Stated Complaint: MIGRAINE Time Seen by Provider: 07/19/18 06:59 Source of Information: Reports: Patient History Limitations: Reports: No Limitations - History of Present Illness INITIAL COMMENTS - FREE TEXT/NARRATIVE: 32-year-old female presents to the ED with a right hemicranial headache that has gradually worsened over the last week. Patient has a history of similar type headaches chronically for the last several years. Every 3 months she in receives trigger point injection is usually with lidocaine in a bit of steroid and she's due for this within the next week. Currently she's had a headache for about a week but it worsens overnight with associated nausea and photophobia. This is what prompted turned to the ED. Patient has taken tripped in his twice in the last week with some improvement in the headache. She takes Topamax daily for prevention of acute headache. Has chronic problems with her cervical spine having had previous C-spine fusion in the past as well. Onset: Gradual Onset Date: 07/12/18 Duration: Day(s):, Getting Worse Location: Reports: Head (Rt hemicranial headache. ) Quality: Reports: Ache, Throbbing, Other Severity: Moderate (Pounding 8 out of 10) Improves with: Reports: None Worsens with: Reports: Other (Exposure to light.), Movement Context: Denies: Activity, Exercise, Lifting, Sick Contact, Trauma, Other Associated Symptoms: Reports: Headaches, Loss of Appetite, Nausea/Vomiting. 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 (see below) Right Headache Pain Score (Numeric/FACES): 8 - Related Data Allergies Allergy/AdvReac Type Severity Reaction Status Date / Time bacitracin Allergy Rash Verified 07/19/18 06:30 ketorolac [From Toradol] Allergy Hives Verified 07/19/18 06:30 nalbuphine [From Nubain] Allergy Hives Verified 07/19/18 06:30 tramadol Allergy Hives Verified 07/19/18 06:30 Penicillins AdvReac Vomiting Verified 07/19/18 06:30 Home Meds: Home Meds Topiramate 150 mg PO BID 01/06/18 [History] ClonazePAM [KlonoPIN] 0.5 mg PO BID 04/23/18 [History] SUMAtriptan [Imitrex] 6 mg IM DAILY 07/19/18 [History] Past Medical History HEENT History: Reports: Other (See Below) Other HEENT History: wears glasses Cardiovascular History: Reports: None Respiratory History: Reports: None Gastrointestinal History: Reports: GERD Genitourinary History: Reports: None 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 History: Reports: 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 Other 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 History: dyspareunia, intermenstrual bleeding, metorrhagia, pelvic pain, retroflexion of uterus---hysterectomy done to fix problems Musculoskeletal History: Reports: Neck Pain, Chronic Other Musculoskeletal History: foot surgery Neurological History: Reports: Migraines Psychiatric History: Reports: Anxiety Endocrine/Metabolic History: Reports: Hypothyroidism Hematologic History: Reports: None Immunologic History: Reports: None Oncologic (Cancer) History: Reports: Malignant Melanoma Dermatologic History: Reports: Melanoma - Past Surgical History Cardiovascular Surgical History: Reports: None Respiratory Surgical History: Reports: None GI Surgical History: Reports: Hernia, Inguinal Female Surgical History: Reports: Section, Hysterectomy, Oophorectomy Musculoskeletal Surgical History: Reports: Other (See Below) Other Musculoskeletal Surgeries/Procedures:: cervical fusion Oncologic Surgical History: Reports: Other (See Below) Dermatological Surgical History: Reports: Skin Biopsy Social & Family History - Family History Family Medical History: Noncontributory - Tobacco Use Smoking Status *Q: Never Smoker - Caffeine Use Caffeine Use: Reports: None Caffeine Use Comment: maybe a cup per week - Recreational Drug Use Recreational Drug Use: No - Living Situation & Occupation Living situation: Reports: Occupation: Unemployed ED ROS GENERAL - Review of Systems Review Of Systems: See Below Constitutional: Reports: Decreased Appetite. Denies: Fever, Chills, Malaise, Weakness, Fatigue, Weight Loss HEENT: Denies: Contact Lenses, Glasses, Hearing Loss, Nosebleed, Nose Pain, Rhinitis, Sinus Problem, Throat Pain, Throat Swelling, Vertigo Respiratory: Reports: No Symptoms Cardiovascular: Reports: No Symptoms Endocrine: Reports: No Symptoms GI/Abdominal: Reports: Nausea : Reports: No Symptoms Musculoskeletal: Reports: Neck Pain Skin: Reports: No Symptoms (Chronically.) Neurological: Reports: Headache. Denies: Numbness, Paresthesia, Pre-Existing Deficit, Seizure, Syncope (See history of present illness), Tingling, Tremors, Trouble Speaking, Difficulty Walking, Weakness, Change in Speech, Gait Disturbance Psychiatric: Reports: No Symptoms Hematologic/Lymphatic: Reports: No Symptoms Immunologic: Reports: No Symptoms - Physical Exam Exam: See Below Exam Limited By: No Limitations General Appearance: Alert, WD/WN, No Apparent Distress, Other (Examination a darkened room.) Eye Exam: Bilateral Eye: Normal Inspection, PERRL Throat/Mouth: Normal Inspection, Normal Lips, Normal Oropharynx Head Exam: Atraumatic, Normocephalic Neck: Normal Inspection, Limited Range of Motion (Some pain with full extension and flexion of the neck.), Tender Lateral (Tender right lateral neck) Respiratory/Chest: No Respiratory Distress, Lungs Clear, Normal Breath Sounds, Chest Non-Tender Cardiovascular: Normal Peripheral Pulses, Regular Rate, Rhythm, No Edema, No Gallop, No Murmur Neuro Exam (Abbreviated): Alert, Oriented, CN II-XII Intact, Normal Cognition, Normal Gait, No Motor/Sensory Deficits, Other (No periaortic pronator drift. Finger to nose assessment is normal.) Extremities: Normal Inspection, Normal Range of Motion, Non-Tender, No Pedal Edema Psychiatric: Normal Affect, Normal Mood Skin Exam: Warm, Dry, Intact, Normal Color, No Rash Course - Vital Signs Last Recorded V/S: Last Vital Signs Temp 36.8 C 07/19/18 06:26 Pulse 81 07/19/18 06:26 Resp 18 07/19/18 06:26 BP 108/75 07/19/18 06:26 Pulse Ox 100 07/19/18 06:26 - Orders/Labs/Meds Meds: Medications Discontinued Medications Generic Name Dose Route Start Last Admin Trade Name Lis PRN Reason Stop Dose Admin Diphenhydramine HCl 25 mg 07/19/18 07:02 07/19/18 07:11 Benadryl IVPUSH 07/19/18 07:03 25 mg ONETIME ONE Administration Diphenhydramine HCl 25 mg 07/19/18 08:35 07/19/18 08:43 Benadryl IVPUSH 07/19/18 08:36 25 mg ONETIME ONE Administration Fentanyl 50 mcg 07/19/18 09:20 07/19/18 09:27 Sublimaze IVPUSH 07/19/18 09:21 50 mcg ONETIME ONE Administration Haloperidol Lactate 2.5 mg 07/19/18 08:35 08/29/18 08:47 Haldol IVPUSH 07/19/18 08:36 2.5 mg ONETIME ONE Administration Haloperidol Lactate 2.5 mg 07/19/18 09:21 07/19/18 09:29 Haldol IVPUSH 07/19/18 09:22 2.5 mg ONETIME ONE Administration Hydromorphone HCl 1 mg 07/19/18 07:03 07/19/18 07:22 Dilaudid IVPUSH 07/19/18 07:04 1 mg ONETIME ONE Administration Hydromorphone HCl 0.5 mg 07/19/18 07:56 07/19/18 08:00 Dilaudid IVPUSH 07/19/18 07:57 0.5 mg ONETIME ONE Administration Dextrose/Sodium Chloride 1,000 mls @ 999 mls/hr 07/19/18 07:00 07/19/18 07:11 Dextrose 5%-Normal Saline IV 999 mls/hr ASDIRECTED CRISSY Administration Metoclopramide HCl 7.5 mg 07/19/18 07:01 07/19/18 07:16 Reglan IVPUSH 07/19/18 07:02 7.5 mg ONETIME ONE Administration - Radiology Interpretation Free Text/Narrative:: 32-year-old female presents to the ED with worsening right hemicranial headache over the last week. Associated photophobia and nausea this morning. Triptans have failed to make her better. - Re-Assessments/Exams Free Text/Narrative Re-Assessment/Exam: 07/19/18 07:55 Patient reports headache is still 7 out of 10. Medications were administered about 50 minutes ago. Will give second dose of Dilaudid 0.5 mg IV. 07/19/18 08:35 second dose of Dilaudid 0.5 mg did not meet with any real relief of pain. Still rates pain as 7 out of 10. Still right hemicranial headache. Will try Haldol 2.5 mg IV with repeat Benadryl 25 mg IV for headache relief. 07/19/18 09:20 still has headache rated at 6 out of 10. Will repeat Haldol 2.5 mg IV and fentanyl 50 g IV. 07/19/18 10:05: Patient still reports a headache as 6 out of 10 but she's been sleeping and resting in its felt that she is actually doing quite well. Her boyfriend/ is here and ready to take her home and she will therefore be discharged. Follow-up with personal care provider as planned for trigger point injections. Departure - Departure Time of Disposition: 09:54 Disposition: Home, Self-Care 01 Condition: Fair Clinical Impression: Migraine variant with headache, Neck pain - Discharge Information *PRESCRIPTION DRUG MONITORING PROGRAM REVIEWED*: Yes *COPY OF PRESCRIPTION DRUG MONITORING REPORT IN PATIENT JENNIFER: No Instructions: Recurrent Migraine Headache Referrals: Jaskaran Bernal MD [Primary Care Provider] - Forms: ED Department Discharge Additional Instructions: Evaluation in the ED this morning in regards to worsening right hemicranial headache classified as migraine variant. Cervical neck pain contributing strongly to recurrent headaches. Received multiple doses of pain medication while in the ED. Fluids Reglan 7.5 mg which usually works on the migraine center and is an antinausea. Added for a total of 1.5 mg. Phenyl 50 g IV. Benadryl 25 mg IV 2 doses. Haldol 2.5 mg IV 2 doses. Suggest home to bed to sleep to see if we can break the headache cycle. Do not have much else to offer in terms of management at this time. You are due for your trigger point injections within the next week which will hopefully settle down the headache again. Follow-up with personal physician in this regard.
[2018-07-19] MEDS ORDERED: HYDROmorphone 0.5 MG/0.5 ML SYRINGE IVPUSH ONE (07:56)
[2018-07-19] MEDS ORDERED: Haloperidol Lactate 5 MG/ML SDV IVPUSH ONE ×2 (08:35→09:21)
[2018-07-19] MEDS ORDERED: fentaNYL 100 MCG/2 ML SDV IVPUSH ONE (09:20)
== END 2018-07-19 10:00 | disposition home or self-care (01) ==
LOC: JD.ED 06:15
DX: G43.809 Other migraine, not intractable, without status migrainosus (principal); Z88.6 Allergy status to analgesic agent; Z88.5 Allergy status to narcotic agent; Z88.0 Allergy status to penicillin; Z88.1 Allergy status to other antibiotic agents
CPT/HCPCS: 96361; 96374; 96375; 96376; 99283; J1170; J1200; J1630; J2765; J3010; J7042; 99284

== ENCOUNTER 2018-08-22 07:05 | Day surgery (SDC) | payer BC ==
[~2018-08-22 07:05] MED LIST changes: -Acetaminophen/oxyCODONE 325-5 MG Tab PO ONE; -Bupivacaine 0.5% 30 ML SDV ONE; -Dexamethasone 4 MG/ML SDV ONE; -HYDROmorphone 0.5 MG/0.5 ML Syringe IVPUSH PRN; -HYDROmorphone 1 MG/ML Syringe ONE; -Ketorolac 30 MG/ML SDV ONE; -Lactated Ringers 1,000 ML ONE; +Lidocaine 1%/Sod Bicarbonate in NS 8.4% 1 ML Syringe IDERM PRN; -Lidocaine 1%/Sod Bicarbonate in NS 8.4% 1 ML Syringe IV PRN; -Metoclopramide 10 MG/2 ML SDV IVPUSH PRN; -Midazolam 1 MG/ML 2 ML SDV ONE; -Neostigmine Methylsulfate 10 MG/10 ML MDV ONE; -Ondansetron 4 MG/2 ML SDV IVPUSH PRN; -Ondansetron 4 MG/2 ML SDV ONE; -Propofol 200 MG/20 ML SDV ONE; -Rocuronium 50 MG/5 ML Vial ONE; -ceFAZolin 1 GM Vial ONE; -fentaNYL 100 MCG/2 ML SDV IVPUSH PRN; -fentaNYL 250 MCG/5 ML SDV ONE
[2018-08-22] MEDS ORDERED: fentaNYL 250 MCG/5 ML SDV ONE (07:09)
[2018-08-22] MEDS ORDERED: Propofol 200 MG/20 ML SDV ONE (07:09)
[2018-08-22] MEDS ORDERED: Midazolam 1 MG/ML 2 ML SDV ONE (07:09)
[2018-08-22] MEDS ORDERED: Ketamine 500 mg/10 ML MDV ONE (07:10)
[2018-08-22] MEDS ORDERED: Dexamethasone 4 MG/ML 5 ML MDV ONE (07:12)
[2018-08-22] MEDS ORDERED: Lidocaine 1% 4 ML ONE (07:12)
[2018-08-22] MEDS ORDERED: Ondansetron 4 MG/2 ML SDV ONE (07:12)
[2018-08-22] MEDS ORDERED: Rocuronium 50 MG/5 ML Vial ONE (07:12)
[2018-08-22] MEDS ORDERED: Bupivacaine 0.5% 30 ML SDV ONE (07:19)
[2018-08-22] MEDS ORDERED: Bupivacaine 0.5% 10 ML SDV ONE (07:21)
[2018-08-22] MEDS ORDERED: ceFAZolin 1 GM Vial ONE (07:43)
[2018-08-22] MEDS ORDERED: HYDROmorphone 0.5 MG/0.5 ML Syringe ONE ×2 (08:11)
[2018-08-22] MEDS ORDERED: Ketorolac 30 MG/ML SDV ONE (08:23)
[2018-08-22] MEDS ORDERED: Ondansetron 4 MG/2 ML SDV IVPUSH PRN ×2 (08:39→08:52)
[2018-08-22] MEDS ORDERED: Acetaminophen/oxyCODONE 325-5 MG Tab PO PRN (08:39)
--- NOTE | 2018-08-22 08:47 | PCM.POSTAN ---
POST ANESTHESIA ASSESSMENT - MENTAL STATUS Mental Status: Somnolent - VITAL SIGNS Pulse Rate: 85 SaO2: 100 Resp Rate: 12 Blood Pressure: 127/80 Temperature: 36.2 C - RESPIRATORY Respiratory Status: Respiratory Rate WNL, Airway Patent, O2 Saturation Stable, Supplemental Oxygen - CARDIOVASCULAR CV Status: Pulse Rate WNL, Blood Pressure Stable - GASTROINTESTINAL GI Status: No Symptoms - PAIN Pain Score: 0 - POST OP HYDRATION Hydration Status: Adequate & Stable
[2018-08-22] MEDS ORDERED: HYDROmorphone 0.5 MG/0.5 ML Syringe IVPUSH ONE (08:52)
[2018-08-22] MEDS ORDERED: fentaNYL 100 MCG/2 ML SDV IVPUSH PRN (08:52)
[2018-08-22] MEDS ORDERED: Meperidine 50 MG/ML Vial IVPUSH PRN (08:52)
[2018-08-22] MEDS ORDERED: diphenhydrAMINE 50 MG/ML SDV IVPUSH PRN (08:52)
--- NOTE | 2018-08-22 09:00 | PCM.OPNOTE ---
- General Post-Op/Procedure Note Date of Surgery/Procedure: 08/22/18 Operative Procedure(s): Diagnostic Laparoscopy Findings: Uterus, cervix, left ovary and bilateral fallopian tubes were absent. There is scarring in the area of the cecum. The liver edges and dome were within normal limits. Right ovary appeared be functional, freely mobile, no evidence of endometriosis present. Presence of corpus luteum cyst present-benign in nature. No significant adhesions in the posterior cul-de-sac. Vaginal cuff appears well supported and well-healed. Pre Op Diagnosis: 1. Pelvic pain. 2. 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 Post-Op Diagnosis: Same Anesthesia Technique: General ET Tube Other Anesthesia Type: Marcaine 0.5% locally Primary Surgeon: Asael Soto Secondary Surgeon: Reagan Devine Anesthesia Provider: Kris Jerez Manufacturing Job Titles: Rosa Bush Reason Manufacturing Job Titles Was Necessary: Assistance, retraction, patient safety, quality of care Role of Manufacturing Job Titles: Same Fluid Replacement, Intraop: 600 Output, Urine Amount: 100 EBL in mLs: 2 Drain/Tube Comments:: Indwelling bladder catheterremoved at the end of case Complications: None Condition: Good Free Text/Narrative:: Surgery duration: 17 minutes Procedure: The patient was taken to the operating room and placed in supine position on the operative table. She had sequential compression stockings in place for DVT prophylaxis and had been given 2 g of Ancef IV for infection prophylaxis. She was administered general endotracheal anesthesia. After administration of anesthesia the patient was placed in dorsal lithotomy position and prepped and draped in usual fashion. An indwelling bladder catheter was placed as was a uterine manipulator. A sponge stick was placed in the vagina as patient was status post hysterectomy. Infraumbilical incision site and suprapubic site were then infiltrated with approximately 3-4 mL of Marcaine 0.5%. 5 mm incisions were made in these areas. Varies needle was placed in the infraumbilical incision site and pneumoperitoneum was established was in 2 L of CO2. The laparoscopic sleeve was then placed as was the scope. Under direct visualization the suprapubic site was developed with a 5 mm port. Pelvis was evaluated findings as above. uterus , cervix, eye lateral fallopian tubes and left ovary were surgically absent. No significant scarring was noted. Vaginal cuff appeared be well supported. Right ovary appeared to be functional, was freely mobile. Corpus luteum scarring was present on the ovary but no other abnormalities were noted and no endometriosis was identified. Anatomy otherwise was unremarkable. The lower sleeve having been removed under direct visualization. The upper port was removed and the incisions were closed with single subcuticular interrupted suture of 3-0 Monocryl. The incisions were further approximated with Dermabond skin glue. The uterine manipulator and Larios catheter removed. Patient was returned to the supine position and awakened from general endotracheal anesthesia. She left the operating room in good condition.
--- NOTE | 2018-08-22 09:05 | PCM.PREANE ---
Preanesthetic Assessment - Procedure Proposed Procedure: Diagnostic laparoscopy - Anesthesia/Transfusion/Family Hx Anesthesia History: Prior Anesthesia Without Reaction Family History of Anesthesia Reaction: No Transfusion History: No Prior Transfusion(s) Additional History: Hx of cervical fusion - Review of Systems General: No Symptoms Pulmonary: No Symptoms Cardiovascular: No Symptoms Gastrointestinal: Other (GERD hx) Neurological: No Symptoms Other: Reports: Thyroid Problems, Anxiety - Physical Assessment NPO Status Date: 08/21/18 NPO Status Time: 19:00 Pulse: 77 O2 Sat by Pulse Oximetry: 100 Respiratory Rate: 16 Blood Pressure: 111/72 Temperature: 36.9 C Vital Signs: Last Vital Signs Temp 36.2 C 08/22/18 08:47 Pulse 85 08/22/18 08:47 Resp 12 08/22/18 08:47 BP 127/80 08/22/18 08:47 Pulse Ox 100 08/22/18 08:47 Height: 1.55 m Weight: 45.813 kg ASA Class: 2 Mental Status: Alert & Oriented x3 Airway Class: Mallampati = 2 Dentition: Reports: Normal Dentition Thyro-Mental Finger Breadths: 3 Mouth Opening Finger Breadths: 3 ROM/Head Extension: Full Lungs: Clear to Auscultation, Normal Respiratory Effort Cardiovascular: Regular Rate, Regular Rhythm - Lab Values: Laboratory Last Values Sodium 143 mEq/L (136-145) 08/22/18 07:30 Potassium 3.8 mEq/L (3.5-5.1) 08/22/18 07:30 Chloride 113 mEq/L (98-107) H 08/22/18 07:30 Carbon Dioxide 20 mEq/L (21-32) L 08/22/18 07:30 Anion Gap 13.8 (5-15) 08/22/18 07:30 BUN 14 mg/dL (7-18) 08/22/18 07:30 Creatinine 1.1 mg/dL (0.55-1.02) H 08/22/18 07:30 Est Cr Clr Drug Dosing 52.61 mL/min 08/22/18 07:30 Estimated GFR (MDRD) 57 mL/min (>60) 08/22/18 07:30 BUN/Creatinine Ratio 12.7 (14-18) L 08/22/18 07:30 Glucose 99 mg/dL (74-106) 08/22/18 07:30 Calcium 8.8 mg/dL (8.5-10.1) 08/22/18 07:30 - Allergies Allergies/Adverse Reactions: Allergies Allergy/AdvReac Type Severity Reaction Status Date / Time bacitracin Allergy Rash Verified 08/22/18 07:42 ketorolac [From Toradol] Allergy Hives Verified 08/22/18 07:42 nalbuphine [From Nubain] Allergy Hives Verified 08/22/18 07:42 Penicillins AdvReac Vomiting Verified 08/22/18 07:42 - Blood Blood Available: No Product(s) Available: None - Anesthesia Plan Pre-Op Medication Ordered: None - Acknowledgements Anesthesia Type Planned: General Anesthesia Pt an Appropriate Candidate for the Planned Anesthesia: Yes Alternatives and Risks of Anesthesia Discussed w Pt/Guardian: Yes Pt/Guardian Understands and Agrees with Anesthesia Plan: Yes PreAnesthesia Questionnaire HEENT History: Reports: Impaired Vision, Other (See Below) Other HEENT History: wears glasses Cardiovascular History: Reports: None Respiratory History: Reports: None Gastrointestinal History: Reports: GERD Genitourinary History: Reports: None 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: Reports: 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 Other OB/BYN History: dyspareunia, intermenstrual bleeding, metorrhagia, pelvic pain, retroflexion of uterus---hysterectomy done to fix problems Musculoskeletal History: Reports: Neck Pain, Chronic Other Musculoskeletal History: myofascial pain, diastis recti Neurological History: Reports: Migraines Psychiatric History: Reports: Anxiety Endocrine/Metabolic History: Reports: Hypothyroidism Hematologic History: Reports: None Immunologic History: Reports: None Oncologic (Cancer) History: Reports: Other (See Below) Dermatologic History: Reports: Other (See Below) Other Dermatologic History: skin neoplasm, skin nenus, malignant melanoma - Past Surgical History HEENT Surgical History: Reports: Oral Surgery Cardiovascular Surgical History: Reports: None Respiratory Surgical History: Reports: None GI Surgical History: Reports: Hernia, Inguinal Other GI Surgeries/Procedures: inguinal hernia repair Female Surgical History: Reports: Section, Hysterectomy, Oophorectomy Other Female Surgeries/Procedures: cervix removed, fallopian tubes removed, left ovary removed Male Surgical History: Endocrine Surgical History: Reports: None Neurological Surgical History: Reports: C-Spine Other Neurological Surgeries/Procedures: cervical fusion Musculoskeletal Surgical History: Reports: ORIF Other Musculoskeletal Surgeries/Procedures:: cervical fusion, foot surgery Oncologic Surgical History: Reports: Other (See Below) Other Oncologic Surgeries/Procedures: melanoma removed Dermatological Surgical History: Reports: Skin Biopsy - SUBSTANCE USE Smoking Status *Q: Never Smoker Recreational Drug Use History: No - HOME MEDS Home Medications: Home Meds ALPRAZolam [Xanax] 1 mg PO BID PRN 08/21/18 [History] ARIPiprazole [Abilify] 5 mg PO DAILY 08/21/18 [History] Butalbital/Acetaminophen [Butalbital-Acetaminophn 50-300] 1 cap PO Q4H PRN 08/21 [History] Dextroamphetamine/Amphetamine [Adderall Xr 30 mg Capsule] 30 mg PO DAILY [History] Topiramate [Topiramate ER] 150 mg PO BID 08/21/18 [History] clonazePAM [Clonazepam] 1 mg PO BID 08/21/18 [History] Acetaminophen/oxyCODONE [Percocet 325-5 MG] 2 tab PO Q4H PRN tablet 08/22/18 [ Rx] - CURRENT (IN HOUSE) MEDS Current Meds: Current Medications Diphenhydramine HCl (Benadryl) 25 mg IVPUSH Q6H PRN PRN Reason: Pruritis Fentanyl (Sublimaze) 50 mcg IVPUSH Q5M PRN PRN Reason: Pain Hydromorphone HCl (Dilaudid) 0.5 mg IV ONETIME ONE Stop: 08/22/18 08:53 Lactated Ringer's (Ringers, Lactated) 1,000 mls @ 125 mls/hr IV ASDIRECTED CRISSY Stop: 08/22/18 23:00 Last Admin: 08/22/18 07:32 Dose: 125 mls/hr Lidocaine/Sodium Bicarbonate (Buffered Lidocaine 1% In Ns 8.4%) 0.25 ml IDERM ONETIME PRN PRN Reason: Prior to IV Start Stop: 08/22/18 18:00 Last Admin: 08/22/18 07:31 Dose: 0.25 ml Meperidine HCl (Demerol) 12.5 mg IVPUSH ONETIME PRN PRN Reason: Shivering Ondansetron HCl (Zofran) 4 mg IVPUSH Q4H PRN PRN Reason: Nausea Stop: 08/22/18 16:00 Ondansetron HCl (Zofran) 4 mg IVPUSH ONETIME PRN PRN Reason: Nausea/Vomiting Oxycodone/Acetaminophen (Percocet 325-5 Mg) 2 tab PO Q4H PRN PRN Reason: Pain Stop: 08/22/18 16:00 Sodium Chloride (Saline Flush) 10 ml FLUSH ASDIRECTED PRN PRN Reason: Keep Vein Open Stop: 08/22/18 18:00 Discontinued Medications Bupivacaine HCl (Marcaine 0.5%) Confirm Administered Dose 30 ml .ROUTE .STK-MED ONE Stop: 08/22/18 07:20 Bupivacaine HCl (Sensorcaine-Mpf 0.5%) Confirm Administered Dose 10 ml .ROUTE .STK-MED ONE Stop: 08/22/18 07:22 Cefazolin Sodium (Ancef) Confirm Administered Dose 2 gm .ROUTE .STK-MED ONE Stop: 08/22/18 07:44 Dexamethasone (Dexamethasone) Confirm Administered Dose 20 mg .ROUTE .STK-MED ONE Stop: 08/22/18 07:13 Fentanyl (Sublimaze) Confirm Administered Dose 250 mcg .ROUTE .STK-MED ONE Stop: 08/22/18 07:10 Hydromorphone HCl (Dilaudid) Confirm Administered Dose 0.5 mg .ROUTE .STK-MED ONE Stop: 08/22/18 08:12 Hydromorphone HCl (Dilaudid) Confirm Administered Dose 0.5 mg .ROUTE .STK-MED ONE Stop: 08/22/18 08:12 Lidocaine HCl (Xylocaine-Mpf 1%) Confirm Administered Dose 4 mls @ as directed .ROUTE .STK-MED ONE Stop: 08/22/18 07:13 Ketamine HCl (Ketalar) Confirm Administered Dose 500 mg .ROUTE .STK-MED ONE Stop: 08/22/18 07:11 Ketorolac Tromethamine (Toradol) Confirm Administered Dose 30 mg .ROUTE .STK- MED ONE Stop: 08/22/18 08:24 Midazolam HCl (Versed 1 Mg/Ml) Confirm Administered Dose 2 mg .ROUTE .STK-MED ONE Stop: 08/22/18 07:10 Ondansetron HCl (Zofran) Confirm Administered Dose 4 mg .ROUTE .STK-MED ONE Stop: 08/22/18 07:13 Propofol (Diprivan 20 Ml) Confirm Administered Dose 200 mg .ROUTE .STK-MED ONE Stop: 08/22/18 07:10 Rocuronium Willis (Zemuron) Confirm Administered Dose 50 mg .ROUTE .STK-MED ONE Stop: 08/22/18 07:13
--- NOTE | 2018-08-22 10:24 | PCM48HPAN ---
Post Anesthesia Note - EVALUATION WITHIN 48HRS OF ANESTHETIC Vital Signs in Normal Range: Yes Patient Participated in Evaluation: Yes Respiratory Function Stable: Yes Airway Patent: Yes Cardiovascular Function Stable: Yes Hydration Status Stable: Yes Pain Control Satisfactory: Yes Nausea and Vomiting Control Satisfactory: Yes Mental Status Recovered: Yes
[2018-08-22 11:32] VITALS: BP 113/71
== END 2018-08-22 11:16 | disposition home or self-care (01) ==
LOC: JD.SDS 07:05
PROVIDERS: ATTEND Obstetrics & Gynecology
DX: N83.11 Corpus luteum cyst of right ovary (principal); F41.9 Anxiety disorder, unspecified; E03.9 Hypothyroidism, unspecified; Z87.891 Personal history of nicotine dependence; Z87.42 Personal history of other diseases of the female genital tract; Z90.721 Acquired absence of ovaries, unilateral; Z88.1 Allergy status to other antibiotic agents; Z88.5 Allergy status to narcotic agent; Z88.0 Allergy status to penicillin; Z88.4 Allergy status to anesthetic agent
CPT/HCPCS: 36415; 49320; 80048; A9270; J0690; J1100; J1170; J1885; J2250; J2405; J2704; J3010; J3490; J7120; J2001

== ENCOUNTER 2019-04-13 19:35 | Emergency (ER) | payer BC ==
[2019-04-13 19:46] VITALS: BP 125/75
[2019-04-13] MEDS ORDERED: diphenhydrAMINE 50 MG/ML SDV IVPUSH ONE (20:06)
[2019-04-13] MEDS ORDERED: Ondansetron 4 MG/2 ML SDV IVPUSH ONE (20:07)
[2019-04-13] MEDS ORDERED: Haloperidol Lactate 5 MG/ML SDV IVPUSH ONE (20:07)
[2019-04-13] MEDS ORDERED: LORazepam 2 MG/ML SDV IVPUSH ONE (20:08)
[2019-04-13] MEDS ORDERED: Sodium Chloride 0.9% 1,000 ML IV SCH (20:15)
--- NOTE | 2019-04-13 20:20 | EDM.PDOC ---
ED HPI GENERAL MEDICAL PROBLEM - General Chief Complaint: Headache Stated Complaint: headache Time Seen by Provider: 04/13/19 19:46 Source of Information: Reports: Patient History Limitations: Reports: No Limitations - History of Present Illness INITIAL COMMENTS - FREE TEXT/NARRATIVE: This is a 33-year-old female. She states she's been having a headache for the last 3 days. She's been taking tramadol and Percocet and various other medications that may be uses the headache up some for 3 or 4 hours then it comes back. She's had some nausea and vomiting with a headache. She says she has a history of migraine headaches that always seem to be in the right [place] cranial area starts in her face and moves to the back of her head. She sees Dr. Alatorre in [place] for injections in her shoulders and her neck and the back of her head she states to help her headaches. She doesn't know if she's been diagnosed with myofascial syndrome causing her headaches. She says she has a spot in her brain that causes for migraines but she can't tell me anything about this and the spot is supposed to be benign. He denies any visual changes she denies any falling down. She's had no fever and chills she's had no cough and no urinary tract type symptoms. She has been given tramadol as well as Percocet for this headache by her family physician and it really hasn't helped though it is used to headaches but hasn't resolved. She is here to have her headache resolved. I explained to the patient that we do not provide narcotics since the literature does not suggest this is a good practice since oftentimes there can be rebound once narcotics wear off as well as the potential for addiction. We will however provide medication to ease her headache. She says on Tuesday she is supposed to go to the pain clinic for injections in her shoulders and her neck. Headache Pain Score (Numeric/FACES): 8 - Related Data Allergies Allergy/AdvReac Type Severity Reaction Status Date / Time bacitracin Allergy Rash Verified 04/13/19 19:46 ketorolac [From Toradol] Allergy Hives Verified 04/13/19 19:46 nalbuphine [From Nubain] Allergy Hives Verified 04/13/19 19:46 Penicillins AdvReac Vomiting Verified 04/13/19 19:46 Home Meds: Home Meds ALPRAZolam [Xanax] 1 mg PO BID PRN 08/21/18 [History] ARIPiprazole [Abilify] 5 mg PO DAILY 08/21/18 [History] Dextroamphetamine/Amphetamine [Adderall Xr 30 mg Capsule] 30 mg PO DAILY [History] Topiramate [Topiramate ER] 150 mg PO BID 08/21/18 [History] clonazePAM [Clonazepam] 1 mg PO BID 08/21/18 [History] Acetaminophen/oxyCODONE [Percocet 325-5 MG] 1 tab PO Q4H PRN 04/13/19 [History] SUMAtriptan [Imitrex] 25 mg PO DAILY 04/13/19 [History] Past Medical History HEENT History: Reports: Impaired Vision, Other (See Below) Other HEENT History: wears glasses Cardiovascular History: Reports: None Respiratory History: Reports: None Gastrointestinal History: Reports: GERD Genitourinary History: Reports: None 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 SUPERVISOR History: Reports: 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 Other 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 SUPERVISOR History: dyspareunia, intermenstrual bleeding, metorrhagia, pelvic pain, retroflexion of uterus---hysterectomy done to fix problems Musculoskeletal History: Reports: Neck Pain, Chronic Other Musculoskeletal History: myofascial pain, diastis recti Neurological History: Reports: Migraines Psychiatric History: Reports: Anxiety Endocrine/Metabolic History: Reports: Hypothyroidism Hematologic History: Reports: None Immunologic History: Reports: None Oncologic (Cancer) History: Reports: Other (See Below) Dermatologic History: Reports: Other (See Below) Other Dermatologic History: skin neoplasm, skin nenus, malignant melanoma - Past Surgical History HEENT Surgical History: Reports: Oral Surgery Cardiovascular Surgical History: Reports: None Respiratory Surgical History: Reports: None GI Surgical History: Reports: Hernia, Inguinal Other GI Surgeries/Procedures: inguinal hernia repair Female Surgical History: Reports: Section, Hysterectomy, Oophorectomy Other Female Surgeries/Procedures: cervix removed, fallopian tubes removed, left ovary removed Endocrine Surgical History: Reports: None Neurological Surgical History: Reports: C-Spine Other Neurological Surgeries/Procedures: cervical fusion Musculoskeletal Surgical History: Reports: ORIF Other Musculoskeletal Surgeries/Procedures:: cervical fusion, foot surgery Oncologic Surgical History: Reports: Other (See Below) Other Oncologic Surgeries/Procedures: melanoma removed Dermatological Surgical History: Reports: Skin Biopsy Social & Family History - Family History Family Medical History: Noncontributory - Tobacco Use Smoking Status *Q: Never Smoker - Caffeine Use Caffeine Use: Reports: None Caffeine Use Comment: maybe a cup per week - Recreational Drug Use Recreational Drug Use: No - Living Situation & Occupation Living situation: Reports: (), with Significant Other ( Boyfriend) Occupation: Unemployed ED ROS GENERAL - Review of Systems Review Of Systems: See Below Constitutional: Denies: Fever, Chills HEENT: Denies: Eye Pain Respiratory: Reports: No Symptoms Cardiovascular: Reports: No Symptoms Endocrine: Reports: No Symptoms GI/Abdominal: Reports: Nausea, Vomiting. Denies: Abdominal Pain, Diarrhea : Denies: Dysuria Musculoskeletal: Reports: Neck Pain, Shoulder Pain, Other (She has chronic neck pain and shoulder pain) Skin: Reports: No Symptoms Neurological: Reports: Headache Psychiatric: Reports: No Symptoms Hematologic/Lymphatic: Reports: No Symptoms - Physical Exam Exam: See Below Exam Limited By: No Limitations General Appearance: Alert, WD/WN, No Apparent Distress Eye Exam: Bilateral Eye: Normal Inspection, PERRL Ears: Normal External Exam, Normal Canal, Normal TMs Nose: Normal Inspection Throat/Mouth: Normal Inspection, Normal Lips, Normal Voice, No Airway Compromise Head Exam: Normocephalic Neck: Normal Inspection, Supple Respiratory/Chest: No Respiratory Distress, Lungs Clear, Normal Breath Sounds Cardiovascular: Regular Rate, Rhythm, No Murmur GI/Abdominal: Soft, Non-Tender Neuro Exam (Abbreviated): Alert, Oriented, CN II-XII Intact, Other (Patient does not appear to be in great distress from her headache, she seems to talk freely and move freely.) Back Exam: Full Range of Motion Extremities: Normal Inspection, Normal Range of Motion Psychiatric: Normal Affect, Normal Mood Skin Exam: Warm, Dry Course - Vital Signs Last Recorded V/S: Last Vital Signs Temp 97.9 F 04/13/19 19:43 Pulse 86 04/13/19 19:43 Resp 18 04/13/19 19:43 BP 125/75 04/13/19 19:43 Pulse Ox 99 04/13/19 19:43 - Orders/Labs/Meds Orders: Active Orders 24 hr Category Date Time Status Sodium Chloride 0.9% [Normal Saline] 1,000 ml Med 04/13/19 20:15 Active IV ASDIRECTED Medication Orders Sodium Chloride (Normal Saline) 1,000 mls @ 1,000 mls/hr IV ASDIRECTED CRISSY Last Admin: 04/13/19 20:20 Dose: 1,000 mls/hr Meds: Medications Generic Name Dose Route Start Last Admin Trade Name Freq PRN Reason Stop Dose Admin Sodium Chloride 1,000 mls @ 1,000 mls/hr 04/13/19 20:15 04/13/19 20:20 Normal Saline IV 1,000 mls/hr ASDIRECTED CRISSY Administration Discontinued Medications Generic Name Dose Route Start Last Admin Trade Name Freq PRN Reason Stop Dose Admin Diphenhydramine HCl 25 mg 04/13/19 20:06 04/13/19 20:23 Benadryl IVPUSH 04/13/19 20:07 25 mg ONETIME ONE Administration Haloperidol Lactate 2 mg 04/13/19 20:07 04/13/19 20:25 Haldol IVPUSH 04/13/19 20:08 2 mg ONETIME ONE Administration Lorazepam 0.5 mg 04/13/19 20:08 04/13/19 20:21 Ativan IVPUSH 04/13/19 20:09 0.5 mg ONETIME ONE Administration Ondansetron HCl 4 mg 04/13/19 20:07 04/13/19 20:20 Zofran IVPUSH 04/13/19 20:08 4 mg ONETIME ONE Administration - Re-Assessments/Exams Free Text/Narrative Re-Assessment/Exam: 04/13/19 22:22 After the medications were given the patient has essentially been sleeping the entire time. She states her headache is better and she wants to go home. Departure - Departure Time of Disposition: 22:22 Disposition: Home, Self-Care 01 Condition: Good Clinical Impression: Migraine Qualifiers: Migraine type: unspecified Status migrainosus presence: without status migrainosus Intractability: not intractable Qualified Code(s): G43.909 - Migraine, unspecified, not intractable, without status migrainosus - Discharge Information *PRESCRIPTION DRUG MONITORING PROGRAM REVIEWED*: Not Applicable *COPY OF PRESCRIPTION DRUG MONITORING REPORT IN PATIENT JENNIFER: Not Applicable Referrals: Steff Calvillo NP [Primary Care Provider] - Forms: ED Department Discharge Additional Instructions: Home and sleep as much as possible, if you awaken and the headache is still present then take some tramadol or Percocet, follow-up with Dr. Alatorre in [place] on Tuesday for your injections, return to the ER if needed and follow -up with your family doctor this week. - My Orders Last 24 Hours: My Active Orders 04/13/19 20:15 Sodium Chloride 0.9% [Normal Saline] 1,000 ml IV ASDIRECTED - Assessment/Plan Last 24 Hours: My Active Orders 04/13/19 20:15 Sodium Chloride 0.9% [Normal Saline] 1,000 ml IV ASDIRECTED
== END 2019-04-13 22:40 | disposition home or self-care (01) ==
LOC: JD.ED 19:35
DX: G43.909 Migraine, unspecified, not intractable, without status migrainosus (principal); K21.9 Gastro-esophageal reflux disease without esophagitis; F41.9 Anxiety disorder, unspecified; E03.9 Hypothyroidism, unspecified; Z88.8 Allergy status to other drugs, medicaments and biological substances; Z88.0 Allergy status to penicillin; Z79.899 Other long term (current) drug therapy
CPT/HCPCS: 96361; 96374; 96375; 99283; J1200; J1630; J2060; J2405; J7040; 99284

== ENCOUNTER 2019-08-15 16:18 | Emergency (ER) | payer BC ==
[2019-08-15 16:24] VITALS: BP 138/88; PULSE 86
[2019-08-15] MEDS ORDERED: Sodium Chloride 0.9% 1,000 ML IV ONE (18:14)
[2019-08-15] MEDS ORDERED: Ondansetron 4 MG/2 ML SDV IVPUSH ONE (18:15)
[2019-08-15] MEDS ORDERED: Sodium Chloride 0.9% 10 ML Syringe FLUSH PRN (18:15)
[2019-08-15] MEDS ORDERED: Haloperidol Lactate 5 MG/ML SDV IVPUSH ONE (18:15)
[2019-08-15] MEDS ORDERED: diphenhydrAMINE 50 MG/ML SDV IVPUSH ONE (18:15)
[2019-08-15] MEDS ORDERED: LORazepam 2 MG/ML SDV IVPUSH ONE (18:16)
--- NOTE | 2019-08-15 19:23 | EDM.PDOC ---
ED HPI GENERAL MEDICAL PROBLEM - General Chief Complaint: Headache Stated Complaint: MIGRAINE Time Seen by Provider: 08/15/19 17:30 Source of Information: Reports: Patient, RN Notes Reviewed History Limitations: Reports: No Limitations - History of Present Illness INITIAL COMMENTS - FREE TEXT/NARRATIVE: Patient is a 33-year-old female who presents to the ED for evaluation of a migraine headache. She states that this is typical of her migraine headache, this started above her right eye and radiates in a straight line to the back of her head. Patient notes a history of prior migraines. She notes this one to be present for the last week or so now, she did take 2 doses of Imitrex, her emgality pen, and multiple doses of barbuteral, and the headache has not subsided. 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 She does not note any sort of food triggers that may have caused an issue. She would rate her pain at a 10 out of 10 today, she is not light sensitive she is not sound sensitive, she denies any nausea or vomiting, she notes a history of a prior hysterectomy so she is not at this time. Headache Pain Score (Numeric/FACES): 9 - Related Data Allergies Allergy/AdvReac Type Severity Reaction Status Date / Time bacitracin Allergy Rash Verified 08/15/19 16:24 ketorolac [From Toradol] Allergy Hives Verified 08/15/19 16:24 nalbuphine [From Nubain] Allergy Hives Verified 08/15/19 16:24 Penicillins AdvReac Vomiting Verified 08/15/19 16:24 Home Meds: Home Meds ALPRAZolam [Xanax] 1 mg PO BID PRN 08/21/18 [History] Dextroamphetamine/Amphetamine [Adderall Xr 30 mg Capsule] 30 mg PO DAILY [History] Topiramate [Topiramate ER] 150 mg PO BID 08/21/18 [History] clonazePAM [Clonazepam] 1 mg PO BID 08/21/18 [History] SUMAtriptan [Imitrex] 25 mg PO DAILY 04/13/19 [History] Past Medical History HEENT History: Reports: Impaired Vision, Other (See Below) Other HEENT History: wears glasses Cardiovascular History: Reports: None Respiratory History: Reports: None Gastrointestinal History: Reports: GERD Genitourinary History: Reports: None 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 SUPERINTENDENT History: Reports: 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 Other SAW SUPERINTENDENT History: dyspareunia, intermenstrual bleeding, metorrhagia, pelvic pain, retroflexion of uterus---hysterectomy done to fix problems Musculoskeletal History: Reports: Neck Pain, Chronic Other Musculoskeletal History: myofascial pain, diastis recti Neurological History: Reports: Migraines Psychiatric History: Reports: Anxiety Endocrine/Metabolic History: Reports: Hypothyroidism Hematologic History: Reports: None Immunologic History: Reports: None Oncologic (Cancer) History: Reports: Other (See Below) Other Oncologic History: melanoma Dermatologic History: Reports: Other (See Below) Other Dermatologic History: skin neoplasm, skin nenus, malignant melanoma - Past Surgical History HEENT Surgical History: Reports: Oral Surgery Cardiovascular Surgical History: Reports: None Respiratory Surgical History: Reports: None GI Surgical History: Reports: Hernia, Inguinal Other GI Surgeries/Procedures: inguinal hernia repair Female Surgical History: Reports: Section, Hysterectomy, Oophorectomy Other Female Surgeries/Procedures: cervix removed, fallopian tubes removed, left ovary removed Endocrine Surgical History: Reports: None Neurological Surgical History: Reports: C-Spine Other Neurological Surgeries/Procedures: cervical fusion Musculoskeletal Surgical History: Reports: ORIF Other Musculoskeletal Surgeries/Procedures:: cervical fusion, foot surgery Oncologic Surgical History: Reports: Other (See Below) Other Oncologic Surgeries/Procedures: melanoma removed Dermatological Surgical History: Reports: Skin Biopsy Social & Family History - Family History Family Medical History: Noncontributory - Tobacco Use Smoking Status *Q: Never Smoker Second Hand Smoke Exposure: No - Caffeine Use Caffeine Use: Reports: Coffee Caffeine Use Comment: maybe a cup per week - Recreational Drug Use Recreational Drug Use: No - Living Situation & Occupation Living situation: Reports: (), with Significant Other ( Boyfriend) Occupation: Unemployed ED ROS GENERAL - Review of Systems Review Of Systems: See Below Constitutional: Denies: Fever, Chills HEENT: Reports: No Symptoms Respiratory: Reports: No Symptoms Cardiovascular: Reports: No Symptoms Endocrine: Reports: No Symptoms GI/Abdominal: Reports: No Symptoms : Reports: No Symptoms Musculoskeletal: Reports: No Symptoms Skin: Reports: No Symptoms Neurological: Reports: Headache Psychiatric: Reports: No Symptoms Hematologic/Lymphatic: Reports: No Symptoms Immunologic: Reports: No Symptoms - Physical Exam Exam: See Below Exam Limited By: No Limitations General Appearance: Alert, WD/WN, No Apparent Distress Eye Exam: Bilateral Eye: EOMI, Normal Inspection, PERRL Throat/Mouth: Normal Inspection, Normal Lips, Normal Teeth, Normal Gums, Normal Oropharynx, Normal Voice, No Airway Compromise Head Exam: Atraumatic, Normocephalic Neck: Normal Inspection Respiratory/Chest: No Respiratory Distress, Lungs Clear, Normal Breath Sounds, No Accessory Muscle Use, Chest Non-Tender Cardiovascular: Normal Peripheral Pulses, Regular Rate, Rhythm, No Murmur GI/Abdominal: Normal Bowel Sounds, Soft, Non-Tender, No Distention, No Mass Neuro Exam (Abbreviated): Alert, Oriented, Normal Cognition, No Motor/Sensory Deficits Extremities: Normal Inspection, Normal Capillary Refill Psychiatric: Normal Affect, Normal Mood Skin Exam: Warm, Dry, Intact, Normal Color, No Rash Course - Vital Signs Last Recorded V/S: Last Vital Signs Temp 97.3 F 08/15/19 16:23 Pulse 86 08/15/19 16:23 Resp 12 08/15/19 16:23 BP 138/88 08/15/19 16:23 Pulse Ox 100 08/15/19 16:23 - Orders/Labs/Meds Orders: Active Orders 24 hr Category Date Time Status Peripheral IV Care [RC] . DIRECTED Care 08/15/19 18:15 Ordered Sodium Chloride 0.9% [Normal Saline] 1,000 ml Med 08/15/19 18:14 Ordered IV ONETIME Sodium Chloride 0.9% [Saline Flush] Med 08/15/19 18:15 Ordered 10 ml FLUSH ASDIRECTED PRN Peripheral IV Insertion Adult [OM.PC] Stat Oth 08/15/19 18:14 Ordered Medication Orders Sodium Chloride (Normal Saline) 1,000 mls @ 125 mls/hr IV ONETIME ONE Stop: 08/16/19 02:13 Last Admin: 08/15/19 18:36 Dose: 125 mls/hr Sodium Chloride (Saline Flush) 10 ml FLUSH ASDIRECTED PRN PRN Reason: Keep Vein Open Last Admin: 08/15/19 18:49 Dose: 10 ml Meds: Medications Generic Name Dose Route Start Last Admin Trade Name Freq PRN Reason Stop Dose Admin Sodium Chloride 1,000 mls @ 125 mls/hr 08/15/19 18:14 08/15/19 18:36 Normal Saline IV 08/16/19 02:13 125 mls/hr ONETIME ONE Administration Sodium Chloride 10 ml 08/15/19 18:15 08/15/19 18:49 Saline Flush FLUSH 10 ml ASDIRECTED PRN Administration Keep Vein Open Discontinued Medications Generic Name Dose Route Start Last Admin Trade Name Urbanq PRN Reason Stop Dose Admin Diphenhydramine HCl 25 mg 08/15/19 18:15 08/15/19 18:48 Benadryl IVPUSH 08/15/19 18:16 25 mg ONETIME ONE Administration Haloperidol Lactate 2 mg 08/15/19 18:15 08/15/19 18:44 Haldol IVPUSH 08/15/19 18:16 2 mg ONETIME ONE Administration Lorazepam 0.5 mg 08/15/19 18:16 08/15/19 18:51 Ativan IVPUSH 08/15/19 18:17 0.5 mg ONETIME ONE Administration Ondansetron HCl 4 mg 08/15/19 18:15 08/15/19 18:41 Zofran IVPUSH 08/15/19 18:16 4 mg ONETIME ONE Administration - Re-Assessments/Exams Free Text/Narrative Re-Assessment/Exam: 08/15/19 18:22 Patient presents to the ED for the evaluation of a migraine type headache, I reviewed her old records and it seems that she has gotten relief in the past from accommodation of Haldol, Ativan, Benadryl and Zofran, I did order these medications to be given IV with some IV fluids, will reassess the patient after the medications have been given time to work. 08/15/19 20:22 Patient was reassessed at bedside, and states that her headache is much better. We'll discharge home with general recommendations. Departure - Departure Time of Disposition: 20:22 Disposition: Home, Self-Care 01 Condition: Fair Clinical Impression: Migraine Qualifiers: Migraine type: without aura Status migrainosus presence: without status migrainosus Intractability: not intractable Qualified Code(s): G43.009 - Migraine without aura, not intractable, without status migrainosus - Discharge Information *PRESCRIPTION DRUG MONITORING PROGRAM REVIEWED*: No *COPY OF PRESCRIPTION DRUG MONITORING REPORT IN PATIENT JENNIFER: No Instructions: Migraine Headache, [id number] Referrals: Steff Calvillo NP [Primary Care Provider] - Forms: ED Department Discharge Additional Instructions: You were evaluated in the ED for your headache. You were given a combination of medications and IV fluid for management. This did seem to provide you pretty good relief of your symptoms. Recommend that you go home and rest in a quiet darkened room. Try also to keep well hydrated. Please return to the ED if your symptoms should change or worsen. - My Orders Last 24 Hours: My Active Orders 08/15/19 18:14 Sodium Chloride 0.9% [Normal Saline] 1,000 ml IV ONETIME Peripheral IV Insertion Adult [OM.PC] Stat 08/15/19 18:15 Peripheral IV Care [RC] . DIRECTED Sodium Chloride 0.9% [Saline Flush] 10 ml FLUSH ASDIRECTED PRN - Assessment/Plan Last 24 Hours: My Active Orders 08/15/19 18:14 Sodium Chloride 0.9% [Normal Saline] 1,000 ml IV ONETIME Peripheral IV Insertion Adult [OM.PC] Stat 08/15/19 18:15 Peripheral IV Care [RC] . DIRECTED Sodium Chloride 0.9% [Saline Flush] 10 ml FLUSH ASDIRECTED PRN
== END 2019-08-15 20:29 | disposition home or self-care (01) ==
LOC: JD.ED 16:18
DX: G43.009 Migraine without aura, not intractable, without status migrainosus (principal); F41.9 Anxiety disorder, unspecified; K21.9 Gastro-esophageal reflux disease without esophagitis; E03.9 Hypothyroidism, unspecified; Z79.899 Other long term (current) drug therapy; Z88.1 Allergy status to other antibiotic agents; Z88.0 Allergy status to penicillin; Z88.6 Allergy status to analgesic agent
CPT/HCPCS: 96361; 96374; 96375; 99283; J1200; J1630; J2060; J2405; J7040

== ENCOUNTER 2020-02-21 19:11 | Emergency (ER) | payer BC ==
[2020-02-21 19:33] VITALS: BP 128/88; PULSE 65
--- NOTE | 2020-02-21 20:24 | EDM.PDOC ---
ED HPI GENERAL MEDICAL PROBLEM - General Chief Complaint: General Stated Complaint: NAUSEATED DIZZY HEADACHE Time Seen by Provider: 02/21/20 20:04 Source of Information: Reports: Patient History Limitations: Reports: No Limitations, Physical Impairment (So weak as to barely be able to speak) - History of Present Illness INITIAL COMMENTS - FREE TEXT/NARRATIVE: Mrs. Guillen is a 34-year-old woman with a past medical history significant for untreated hypothyroidism, anxiety, and recurrent migraine headaches, who states that she developed a sharp headache felt across the entire right side of her head, generalized body aches and fatigue, lightheadedness, nausea, and insomnia 2 days ago, 02/19/2020. The patient states that she has had photophobia, however, she was scrolling on her phone in a dark room when I initially entered. She reports phonophobia, but denies visual changes, such as blurry vision, wavy lines, or flashes of light, and she denies neurologic symptoms, such as tingling, numbness, or focal weakness. The patient states that her current headache is different from her typical migraines and that her typical migraines do not include photophobia and phonophobia. The patient states that she took Zofran and Tylenol, along with her usual the Topamax and butalbital. Her most recent monthly Emgality injection was about 2 weeks ago. The patient reports intermittent constipation. She denies recent fever, chills , cough, dyspnea, chest pain, palpitations, vomiting, diarrhea, abdominal pain, urinary symptoms, recent weight gain or weight loss, recent bloody bowel movements or black bowel movements, recent joint aches, or rashes. Here in the ED, the patient is found to be hemodynamically stable, afebrile, saturating 100% on room air. The patient states that she was dropped off by her . The patient's PCP is Steff Calvillo NP. She does not recall the name of her Neurologist at [facility]. She does not recall the name of her Barytes Grinder at [facility]. Headache Pain Score (Numeric/FACES): 8 - Related Data Allergies Allergy/AdvReac Type Severity Reaction Status Date / Time bacitracin Allergy Rash Verified 02/21/20 19:32 nalbuphine [From Nubain] Allergy Hives Verified 02/21/20 19:32 Penicillins AdvReac Vomiting Verified 02/21/20 19:32 Home Meds: Home Meds ALPRAZolam [Xanax] 1 mg PO BID PRN 08/21/18 [History] Topiramate [Topiramate ER] 25 mg PO BID 08/21/18 [History] clonazePAM [Clonazepam] 1 mg PO BID 08/21/18 [History] Sertraline [Zoloft] 100 mg PO DAILY 02/21/20 [History] Past Medical History HEENT History: Reports: Impaired Vision Other HEENT History: wears glasses Gastrointestinal History: Reports: GERD (when ) 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 NURSING ASSISTANT History: Reports: 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 Neurological History: Reports: Migraines Psychiatric History: Reports: Anxiety Endocrine/Metabolic History: Reports: Hypothyroidism (untreated) Dermatologic History: Reports: Other (See Below) (Dysplastic nevi with mild melanotic atypia = a benign condition that places the patient at increased risk of melanoma, but is not malignant melanoma) - Past Surgical History HEENT Surgical History: Reports: Oral Surgery (wisdom teeth extraction) GI Surgical History: Reports: Hernia, Inguinal (left) Other GI Surgeries/Procedures: inguinal hernia repair Female Surgical History: Reports: Section (x 2), Hysterectomy, Oophorectomy (left) Neurological Surgical History: Reports: C-Spine (C4-C5 ACDF) Musculoskeletal Surgical History: Reports: ORIF (right ankle, with subsequent removal of hardware) Dermatological Surgical History: Reports: Skin Biopsy (numerous) Social & Family History - Family History Family Medical History: Noncontributory - Tobacco Use Smoking Status *Q: Never Smoker - Caffeine Use Caffeine Use: Reports: Coffee Caffeine Use Comment: maybe a cup per week - Alcohol Use Alcohol Use History: Yes Alcohol Use Frequency: Socially - Recreational Drug Use Recreational Drug Use: No - Living Situation & Occupation Living situation: Reports: (), with Spouse, with Family (2 kids ) Occupation: Unemployed ED ROS GENERAL - Review of Systems Review Of Systems: Comprehensive ROS is negative, except as noted in HPI. - Physical Exam Exam: See Below Exam Limited By: Uncooperative (No effort on neuro exam) General Appearance: No Apparent Distress (initially ), Lethargic (but was initially found scrollingon her phone), Thin Eye Exam: Bilateral Eye: EOMI, Normal Inspection, PERRL Ears: Normal External Exam, Normal Canal, Hearing Grossly Normal, Normal TMs Nose: Normal Inspection, Normal Mucosa, No Blood Throat/Mouth: Normal Inspection, Normal Lips, Normal Teeth, Normal Gums, Normal Oropharynx, Normal Voice, No Airway Compromise Head Exam: Atraumatic, Normocephalic Neck: Normal Inspection, Supple, Non-Tender, Full Range of Motion. No: Lymphadenopathy (L), Lymphadenopathy (R) Respiratory/Chest: No Respiratory Distress, Lungs Clear, Normal Breath Sounds, No Accessory Muscle Use Cardiovascular: Normal Peripheral Pulses, Regular Rate, Rhythm, No Edema, No Gallop, No JVD, No Murmur, No Rub GI/Abdominal: Normal Bowel Sounds, Soft, Non-Tender, No Organomegaly, No Distention, No Abnormal Bruit, No Mass (Female) Exam: Deferred Rectal (Female) Exam: Deferred Neuro Exam (Abbreviated): Oriented, Normal Cognition, Other (<1/5 strength, proximally and distally, upper and lower extremities, symmetrically) Back Exam: Normal Inspection, Full Range of Motion, NT Extremities: Normal Inspection, Normal Range of Motion, No Pedal Edema, Normal Capillary Refill Psychiatric: Depressed Mood Skin Exam: Warm, Dry, Intact, Normal Color, No Rash Course - Vital Signs Last Recorded V/S: Last Vital Signs Temp 36.9 C 02/21/20 19:25 Pulse 65 02/21/20 19:25 Resp 16 02/21/20 19:25 BP 128/88 02/21/20 19:25 Pulse Ox 100 02/21/20 19:25 - Orders/Labs/Meds Meds: Medications Discontinued Medications Generic Name Dose Route Start Last Admin Trade Name Lis PRN Reason Stop Dose Admin Benztropine Mesylate 1 mg 02/21/20 21:02 02/21/20 21:29 Cogentin PO 02/21/20 21:03 1 mg ONETIME STA Administration Haloperidol Lactate 5 mg 02/21/20 21:02 02/21/20 21:21 Haldol IM 02/21/20 21:03 5 mg ONETIME ONE Administration Sodium Chloride 1,000 mls @ 999 mls/hr 02/21/20 21:02 02/21/20 21:18 Normal Saline IV 02/21/20 22:02 999 mls/hr ONETIME ONE Administration Ketorolac Tromethamine 30 mg 02/21/20 21:02 02/21/20 21:19 Toradol IVPUSH 02/21/20 21:03 30 mg ONETIME STA Administration Ondansetron HCl 4 mg 02/21/20 21:02 02/21/20 21:19 Zofran IVPUSH 02/21/20 21:03 4 mg ONETIME ONE Administration - Re-Assessments/Exams Free Text/Narrative Re-Assessment/Exam: 02/21/20 20:19 While no focal neurologic deficits were found on the patient's neurologic examination, she is so extremely weak that I was barely able to perceive any movement whatsoever of either of her upper or lower extremities on command. At the same time, however, the patient was able to roll over from a left decubitus position onto her back, so she must have some strength. This incongruity is most likely due to lack of effort despite my instructing her to really try, however, on the off-chance that her weakness is real, I have ordered a CT of the head without contrast to evaluate for evidence of increased intracranial pressure. Assuming the CT scan returns normal, I will treat her for a migraine. 02/21/20 21:01 CT of the head without contrast as read by Dr. Watts as: 1. Nothing acute is appreciated on noncontrast head CT exam. I will order an Haldol, oral Cogentin, IV Zofran, IV Toradol, and IV fluid. 02/21/20 23:12 The patient states that she feels much better after she was given the above medications. This indicates that her headache was migrainous in etiology. She is much more animated. She states that she feels well enough to go home. She stated that she does not need prescriptions for any medicines. Departure - Departure Time of Disposition: 23:13 Disposition: Home, Self-Care 01 Condition: Good Clinical Impression: Migraine Qualifiers: Migraine type: without aura Status migrainosus presence: without status migrainosus Intractability: not intractable Qualified Code(s): G43.009 - Migraine without aura, not intractable, without status migrainosus - Discharge Information *PRESCRIPTION DRUG MONITORING PROGRAM REVIEWED*: Not Applicable *COPY OF PRESCRIPTION DRUG MONITORING REPORT IN PATIENT JENNIFER: Not Applicable Instructions: Migraine Headache, [id number] Referrals: Steff Calvillo NP [Primary Care Provider] - Forms: ED Department Discharge Additional Instructions: You were seen in the emergency room for a headache with generalized body aches, lightheadedness, fatigue, and insomnia. Work-up in the ER included a CT scan of your head, which returned unremarkable. Your symptoms improved after you were given anti-migraine medicines. We recommend that you stay adequately hydrated and get plenty of rest tonight in a dark, quiet place. Follow-up with your Neurologist at [facility], as needed. If any other problems, please do not hesitate to return to the ER. Sepsis Event Note - Evaluation Sepsis Screening Result: No Definite Risk - Focused Exam Vital Signs: Vital Signs Temp Pulse Resp BP Pulse Ox 02/21/20 19:25 36.9 C 65 16 128/88 100 Date Exam was Performed: 02/22/20 Time Exam was Performed: 01:34
--- NOTE | 2020-02-21 20:57 | CT ---
Head CT Technique: Multiple axial sections of the brain were obtained. Intravenous contrast was not utilized. Comparison: No prior intracranial imaging is available. Findings: Slight basal ganglia calcification is noted. Ventricles along with basal cisterns and sulci over the convexities appear within normal limits. No abnormal parenchymal densities are seen. No evidence of intracranial hemorrhage. No midline shift or mass effect is seen. No acute calvarial abnormality noted on bone window settings. Visualized mastoid sinuses and paranasal sinuses show nothing acute. Impression: 1. Nothing acute is appreciated on noncontrast head CT exam. Diagnostic code #1 Study was dictated in MDT
[2020-02-21] MEDS ORDERED: Benztropine 1 MG Tab PO STA (21:02)
[2020-02-21] MEDS ORDERED: Sodium Chloride 0.9% 1,000 ML IV ONE (21:02)
[2020-02-21] MEDS ORDERED: Ondansetron 4 MG/2 ML SDV IVPUSH ONE (21:02)
[2020-02-21] MEDS ORDERED: Ketorolac 30 MG/ML SDV IVPUSH STA (21:02)
[2020-02-21] MEDS ORDERED: Haloperidol Lactate 5 MG/ML SDV IM ONE (21:02)
== END 2020-02-21 23:44 | disposition home or self-care (01) ==
LOC: JD.ED 19:11
DX: G43.009 Migraine without aura, not intractable, without status migrainosus (principal); Z88.0 Allergy status to penicillin; Z88.8 Allergy status to other drugs, medicaments and biological substances; Z79.899 Other long term (current) drug therapy
CPT/HCPCS: 70450; 96361; 96372; 96374; 96375; 99284; A9270; J1630; J1885; J2405; J7030

== ENCOUNTER 2020-07-12 14:56 | Emergency (ER) | payer BC, MEDICAID ==
[2020-07-12 15:22] VITALS: BP 140/88; PULSE 116
[2020-07-12] MEDS ORDERED: Cyclobenzaprine 10 MG Tab PO ONE (15:28)
[2020-07-12] MEDS ORDERED: Ketorolac 60 MG/2 ML SDV IM ONE (15:28)
--- NOTE | 2020-07-12 15:42 | EDM.PDOC ---
ED HPI GENERAL MEDICAL PROBLEM - General Chief Complaint: Back Pain or Injury Stated Complaint: NECK PAIN AND HAND TINGLING Time Seen by Provider: 07/12/20 15:04 Source of Information: Reports: Patient History Limitations: Reports: No Limitations - History of Present Illness INITIAL COMMENTS - FREE TEXT/NARRATIVE: Patient is a 34-year-old female who presents to the emergency department with complaints of upper back pain and muscle spasms with pain radiating down her left arm. She does have a history of a disc bulge at C5 with spinal fusion completed. She is also been told that she has a bulge at C6, however there was no repair done of this. Symptoms been present for approximately 2 weeks. She has seen a chiropractor 4 times with little improvement. Today she states that the muscle spasming is worsening. She has some numbness in the fingers of her left hand. She has been taking Robaxin 500 mg with her last dose being at 10 AM this morning. She also takes butalbital for migraines. States that she tried using ibuprofen yesterday with little improvement. She denies any known injury. States the symptom onset has been gradual. Her primary care provider is Dr. Garcia and Rosa Calvillo, [facility]. She has not seen a provider in the clinic for this problem. Left Upper Back Pain Score (Numeric/FACES): 10 - Related Data Allergies Allergy/AdvReac Type Severity Reaction Status Date / Time bacitracin Allergy Severe Rash Verified 07/12/20 15:14 nalbuphine [From Nubain] Allergy Severe Hives Verified 07/12/20 15:14 Penicillins AdvReac Severe Vomiting Verified 07/12/20 15:14 Home Meds: Home Meds ALPRAZolam [Xanax] 1 mg PO BID PRN 08/21/18 [History] Sertraline [Zoloft] 100 mg PO DAILY 02/21/20 [History] Amphetamine/Dextroamphetamine [Adderall] 40 mg PO BID 07/12/20 [History] Cholecalciferol (Vitamin D3) [Vitamin D3] 5,000 year PO DAILY 07/12/20 [History] Cyclobenzaprine [Flexeril] 10 mg PO TID PRN #10 tab 07/12/20 [Rx] Naproxen [Naprosyn] 500 mg PO Q12HR #10 tab 08/22/20 [Rx] methocarbamoL [Robaxin-750] 750 mg PO ASDIRECTED 07/12/20 [History] Past Medical History HEENT History: Reports: Impaired Vision Other HEENT History: wears glasses Cardiovascular History: Reports: None Respiratory History: Reports: None Gastrointestinal History: Reports: GERD Genitourinary History: Reports: None WHITE SPOOLER History: Reports: 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 Other WHITE SPOOLER History: dyspareunia, intermenstrual bleeding, metorrhagia, pelvic pain, retroflexion of uterus---hysterectomy done to fix problems Musculoskeletal History: Reports: Other (See Below) Other Musculoskeletal History: neck fusion Neurological History: Reports: Migraines Psychiatric History: Reports: Anxiety Endocrine/Metabolic History: Reports: Hypothyroidism Hematologic History: Reports: None Immunologic History: Reports: None Oncologic (Cancer) History: Reports: Other (See Below) Other Oncologic History: melanoma Dermatologic History: Reports: Other (See Below) Other Dermatologic History: skin neoplasm, skin nenus, malignant melanoma - Infectious Disease History Infectious Disease History: Reports: None - Past Surgical History HEENT Surgical History: Reports: Oral Surgery Cardiovascular Surgical History: Reports: None Respiratory Surgical History: Reports: None GI Surgical History: Reports: Hernia, Inguinal Other GI Surgeries/Procedures: inguinal hernia repair Female Surgical History: Reports: Section, Hysterectomy, Oophorectomy Neurological Surgical History: Reports: C-Spine Musculoskeletal Surgical History: Reports: ORIF Oncologic Surgical History: Reports: Other (See Below) Other Oncologic Surgeries/Procedures: melanoma removed Dermatological Surgical History: Reports: Skin Biopsy Social & Family History - Family History Family Medical History: Noncontributory - Tobacco Use Smoking Status *Q: Current Every Day Smoker Years of Tobacco use: 2 Packs/Tins Daily: 0.3 - Caffeine Use Caffeine Use: Reports: Coffee, Soda, Tea Caffeine Use Comment: maybe a cup per week - Recreational Drug Use Recreational Drug Use: No - Living Situation & Occupation Living situation: Reports: (), with Spouse, with Family (2 kids) Occupation: Unemployed ED ROS GENERAL - Review of Systems Review Of Systems: Comprehensive ROS is negative, except as noted in HPI. ED EXAM, UPPER BACK/NECK PAIN - Physical Exam Exam: See Below Exam Limited By: No Limitations General Appearance: Alert, Mild Distress Cardiovascular/Respiratory: Regular Rate, Rhythm, No M/R/G, Normal Peripheral Pulses, No JVD, Normal Breath Sounds, No Respiratory Distress GI/Abdominal: Normal Bowel Sounds, Soft, Non-Tender, No Organomegaly, No Distention, No Abnormal Bruit, No Mass Back Exam: Normal Inspection, Muscle Spasm (Left lateral of C6-C8), Paraspinal Tenderness (Left lateral of C6-C8), Vertebral Tenderness (C6-C8) Neurologic: clinical appeals specialist II-XII nml As Tested, Alert, Oriented x 3, Other (Positive left- sided Spurling compression test) Skin Exam: Normal Color, Warm/Dry Course - Vital Signs Last Recorded V/S: Last Vital Signs Temp 98.5 F 07/12/20 15:19 Pulse 116 H 07/12/20 15:19 Resp 20 07/12/20 15:19 BP 140/88 07/12/20 15:19 Pulse Ox 100 07/12/20 15:19 - Orders/Labs/Meds Meds: Medications Discontinued Medications Generic Name Dose Route Start Last Admin Trade Name Freq PRN Reason Stop Dose Admin Cyclobenzaprine HCl 10 mg 07/12/20 15:28 07/12/20 15:38 Flexeril PO 07/12/20 15:29 10 mg ONETIME ONE Administration Ketorolac Tromethamine 60 mg 07/12/20 15:28 07/12/20 15:38 Toradol IM 07/12/20 15:29 60 mg ONETIME ONE Administration - Re-Assessments/Exams Free Text/Narrative Re-Assessment/Exam: Patient is a 34-year-old female who presents the emergency department with complaints of a two-week history of upper back pain radiating to her left shoulder as well as numbness and tingling in her left hand. She has a history of bulging disc at C5 with fusion. She also states that C6 was found to be bulging, however she did not have repair completed. She has had no new injury to cause the pain. She does have a positive left-sided Spurling maneuver. I have ordered Toradol 60 mg IM and Flexeril 10 mg p.o. since there has been no new injury to the area, do not feel an x-ray would be beneficial at this point. 07/12/20 16:23 Patient verbalized significant relief of symptoms after the Toradol and Flexeril. I will write prescription for Naprosyn and Flexeril. Recommend that she stop the Robaxin while using the Flexeril as this has not been helping her anyway and would be duplicate therapy. Recommend that she follow-up with primary care provider on Tuesday to discuss possibility of outpatient MRI. Return to the ER for worsening symptoms. Discharge instructions as documented. Departure - Departure Time of Disposition: 16:26 Disposition: Home, Self-Care 01 Condition: Good Clinical Impression: Cervical radiculopathy - Discharge Information *PRESCRIPTION DRUG MONITORING PROGRAM REVIEWED*: No *COPY OF PRESCRIPTION DRUG MONITORING REPORT IN PATIENT JENNIFER: No Prescriptions: Cyclobenzaprine [Flexeril] 10 mg PO TID PRN #10 tab PRN Reason: Muscle Spasm Naproxen [Naprosyn] 500 mg PO Q12HR #10 tab Instructions: Cervical Radiculopathy Referrals: Zane Garcia MD [Physician] - Forms: ED Department Discharge Additional Instructions: You were seen in the emergency department today for upper left sided back pain and numbness in the fingers of your left hand. Your exam was consistent with the diagnosis of cervical radiculopathy. While in the ER you received an injection of Toradol as well as Flexeril. This did significantly improve your symptoms. A prescription for Naprosyn and [facility]il [facility]. Uses medications as prescribed. Do not take your Robaxin while taking the Flexeril. Recommend that you continue to apply heat to the area of discomfort. Massage may also be beneficial to help reduce the muscle spasm. Recommend that you contact your primary care provider Tuesday morning to set up an appointment and discuss today's occurrences. You may discuss the possibility of an outpatient MRI at that time. Return to the ER with any worsening symptoms. Sepsis Event Note (ED) - Evaluation Sepsis Screening Result: No Definite Risk - Focused Exam Vital Signs: Vital Signs Temp Pulse Resp BP Pulse Ox 07/12/20 15:19 98.5 F 116 H 20 140/88 100
== END 2020-07-12 16:35 | disposition home or self-care (01) ==
LOC: JD.ED 14:56
DX: M54.12 Radiculopathy, cervical region (principal); M62.838 Other muscle spasm; F41.9 Anxiety disorder, unspecified; F17.210 Nicotine dependence, cigarettes, uncomplicated; Z90.710 Acquired absence of both cervix and uterus; Z98.890 Other specified postprocedural states; Z88.8 Allergy status to other drugs, medicaments and biological substances; Z88.1 Allergy status to other antibiotic agents; Z88.0 Allergy status to penicillin; Z79.899 Other long term (current) drug therapy
CPT/HCPCS: 96372; 99283; A9270; J1885

== ENCOUNTER 2021-01-22 07:12 | Emergency (ER) | payer BC, MEDICAID ==
[2021-01-22 07:20] VITALS: BP 123/103; PULSE 90
[2021-01-22] MEDS ORDERED: HYDROmorphone 1 MG/ML Syringe IM ONE (07:27)
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
[2021-01-22] MEDS ORDERED: Acetaminophen/HYDROcodone 325-5 MG Tab PO ONE (08:08)
--- NOTE | 2021-01-22 09:36 | CR ---
Chest: Frontal view of the chest was obtained in PA projection. Comparison: Prior chest x-ray of 06/15/16. Heart size and mediastinum are normal. Previous cervical spine surgery is seen. Lungs are clear with no acute parenchymal change. No acute osseous finding is appreciated. Impression: 1. Prior cervical spine surgery. 2. Nothing acute is seen on PA chest x-ray. Diagnostic code #2
--- NOTE | 2021-01-22 09:36 | CR ---
Cervical spine: AP, lateral and odontoid views of the cervical spine were obtained. Comparison: No prior cervical spine plain film study is available, prior MRI cervical spine study of 12/23/19 is available. Anterior plate and screws are noted at C5-6 with intervertebral fixation. Minimal disc space narrowing is noted at C6-7 with slight anterior osteophytes. Other disc spaces are maintained. Slightly abnormal cervical curvature is seen compatible with prior surgery. Nothing acute is appreciated. Impression: 1. Prior surgery at C5-6. 2. Mild disc space narrowing and anterior osteophytes at C6-7. 3. Minimal abnormal curvature which is felt to be due to prior surgery. Diagnostic code #2
--- NOTE | 2021-01-22 10:11 | CR ---
Right knee: 4 views of the right knee were obtained. Comparison: No prior knee exam is available. Medial and lateral joint spaces are fairly well preserved. No joint effusion is seen. No acute fracture or dislocation is identified. Impression: 1. No abnormality is appreciated on right knee exam. Diagnostic code #1
--- NOTE | 2021-01-22 10:12 | CR ---
Right shoulder: 3 views of the right shoulder were obtained. Comparison: No prior right shoulder imaging is available. Prior cervical surgery is noted. Glenohumeral joint appears normal. Acromioclavicular joint appears within normal limits. No acute fracture, dislocation or other bony abnormality is appreciated. No abnormal soft tissue calcifications are seen. Impression: 1. Prior cervical spine surgery. 2. Right shoulder study is otherwise unremarkable. Diagnostic code #2
== END 2021-01-22 09:57 | disposition home or self-care (01) ==
LOC: JD.ED 07:12
DX: S16.1XXA Strain of muscle, fascia and tendon at neck level, initial encounter (principal); S40.011A Contusion of right shoulder, initial encounter; S80.01XA Contusion of right knee, initial encounter; Z88.1 Allergy status to other antibiotic agents; Z88.6 Allergy status to analgesic agent; Z88.8 Allergy status to other drugs, medicaments and biological substances; Z88.5 Allergy status to narcotic agent; Z88.0 Allergy status to penicillin; Z72.0 Tobacco use; Z91.048 Other nonmedicinal substance allergy status; Y04.0XXA Assault by unarmed brawl or fight, initial encounter
CPT/HCPCS: 71045; 72040; 73030; 73564; 96372; 99284; A9270; J1170; 99283

== ENCOUNTER 2021-02-13 00:52 | Emergency (ER) | payer MEDICAID ==
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
[2021-02-13] MEDS ORDERED: Dextrose 5%-0.9% NaCl 1,000 ML IV SCH (01:15)
[2021-02-13 02:04] VITALS: BP 136/90; PULSE 110
[2021-02-13 02:25] LABS: ACETAMINOPHEN 0 ug/mL (10-30)
== END 2021-02-13 03:55 | disposition home or self-care (01) ==
LOC: JD.ED 00:52
DX: S09.93XA Unspecified injury of face, initial encounter (principal); R07.89 Other chest pain; M54.2 Cervicalgia; R51.9 Headache, unspecified; R00.0 Tachycardia, unspecified; Z88.5 Allergy status to narcotic agent; Z88.8 Allergy status to other drugs, medicaments and biological substances; Z88.1 Allergy status to other antibiotic agents; Z88.0 Allergy status to penicillin; Z91.048 Other nonmedicinal substance allergy status; Z98.890 Other specified postprocedural states; Z79.899 Other long term (current) drug therapy; Y04.0XXA Assault by unarmed brawl or fight, initial encounter
CPT/HCPCS: 36415; 80053; 80143; 80179; 80306; 80307; 84703; 85025; 93005; 99284; J7042; 93010

== ENCOUNTER 2021-02-16 12:08 | Emergency (ER) | payer MEDICAID ==
[2021-02-16 12:21] VITALS: BP 159/97; PULSE 80
--- NOTE | 2021-02-16 12:59 | EDM.PDOCBH ---
ED HPI GENERAL MEDICAL PROBLEM - General Chief Complaint: Behavioral/Psych Stated Complaint: PSYCH EVAL Time Seen by Provider: 02/16/21 12:22 Source of Information: Reports: Patient History Limitations: Reports: No Limitations - History of Present Illness INITIAL COMMENTS - FREE TEXT/NARRATIVE: 35-year-old female presents emergency department with complaints of hypomania. The patient states that she is a patient of Dr. Garcia and was sent here by him. She states that she has a significant psych history and was on numerous medications however stopped taking all of them about 3 weeks ago as she states she felt she was on too many. Reports she was taking 3 mg of Klonopin daily, 60 mg of Adderall daily, 100 mg of Zoloft daily, 60 mg of hydrocodone daily and 100 mg of Fioricet daily. She states she went through significant detox symptoms however those have resolved. She states she was sent here to be evaluated for starting medications. Patient had been seeing a psychologist however had stopped seeing him as well. She recently went through a divorce in December and has having a difficult time coping as she only sees her kids 50% of the time. She states she does have a history of hypomania and states that lately she is more depressed than anything. She states that she will have frequent crying spells which then proceeded to anger which then proceeded to feeling remorse. She denies going into fits of rage however. She denies any suicidal ideations or homicidal ideations. She denies any hallucinations. I have ordered labs and a urine drug screen. - Related Data Allergies Allergy/AdvReac Type Severity Reaction Status Date / Time bacitracin Allergy Intermediate Rash Verified 02/16/21 12:22 vitamin E (d-alpha Allergy Intermediate Rash Verified 02/16/21 12:22 tocopherol) Penicillins AdvReac Mild Vomiting Verified 02/16/21 12:22 Home Meds: Home Meds Amphetamine/Dextroamphetamine [Adderall] 20 mg PO BID 07/22/20 [History] Sertraline HCl [Zoloft] 50 mg PO DAILY #30 tablet 02/16/21 [Rx] Past Medical History HEENT History: Reports: Impaired Vision Other HEENT History: wears glasses Cardiovascular History: Reports: None Respiratory History: Reports: None Gastrointestinal History: Reports: GERD Genitourinary History: Reports: None RED HAT ENGINEER History: Reports: 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 Other RED HAT ENGINEER History: dyspareunia, intermenstrual bleeding, metorrhagia, pelvic pain, retroflexion of uterus---hysterectomy done to fix problems Musculoskeletal History: Reports: Other (See Below) Other Musculoskeletal History: neck fusion--x-rays done 3 weeks ago reveal C- spine fusion between C5-C6 level and degenerative disc changes at the C6-7 level. Neurological History: Reports: Migraines Psychiatric History: Reports: Anxiety Endocrine/Metabolic History: Reports: Hypothyroidism Hematologic History: Reports: None Immunologic History: Reports: None Oncologic (Cancer) History: Reports: Other (See Below) Other Oncologic History: melanoma Dermatologic History: Reports: Other (See Below) Other Dermatologic History: skin neoplasm, skin nenus, malignant melanoma - Infectious Disease History Infectious Disease History: Reports: None - Past Surgical History HEENT Surgical History: Reports: Oral Surgery Cardiovascular Surgical History: Reports: None Respiratory Surgical History: Reports: None GI Surgical History: Reports: Hernia, Inguinal Other GI Surgeries/Procedures: inguinal hernia repair Female Surgical History: Reports: Section, Hysterectomy, Oophorectomy Other Female Surgeries/Procedures: cervix removed, fallopian tubes removed, left ovary removed Endocrine Surgical History: Reports: None Neurological Surgical History: Reports: C-Spine Other Neurological Surgeries/Procedures: cervical fusion Musculoskeletal Surgical History: Reports: ORIF Other Musculoskeletal Surgeries/Procedures:: cervical fusion, foot surgery Oncologic Surgical History: Reports: Other (See Below) Other Oncologic Surgeries/Procedures: melanoma removed Dermatological Surgical History: Reports: Skin Biopsy Social & Family History - Family History Family Medical History: No Pertinent Family History - Tobacco Use Tobacco Use Status *Q: Current Every Day Tobacco User Years of Tobacco use: 4 Packs/Tins Daily: 0.5 - Caffeine Use Caffeine Use: Reports: None Caffeine Use Comment: maybe a cup per week - Recreational Drug Use Recreational Drug Use: No - Living Situation & Occupation Living situation: Reports: (), with Spouse, with Family (2 kids) Occupation: Unemployed ED ROS GENERAL - Review of Systems Review Of Systems: Comprehensive ROS is negative, except as noted in HPI. ED EXAM, BEHAVIORAL HEALTH - Physical Exam Exam: See Below Exam Limited By: No Limitations General Appearance: Alert, WD/WN, No Apparent Distress Ears: Normal External Exam, Hearing Grossly Normal Nose: Normal Inspection Throat/Mouth: Normal Inspection, Normal Lips, Normal Voice, No Airway Compromise Head: Atraumatic, Normocephalic Neck: Normal Inspection, Supple, Non-Tender, Full Range of Motion Respiratory/Chest: No Respiratory Distress, Lungs Clear, Normal Breath Sounds, No Accessory Muscle Use, Chest Non-Tender Cardiovascular: Normal Peripheral Pulses, No Murmur GI/Abdominal: Normal Bowel Sounds, Soft, Non-Tender, No Distention (Female) Exam: Deferred Rectal (Female) Exam: Deferred Back Exam: Normal Inspection, Full Range of Motion Extremities: Normal Inspection, Normal Range of Motion, Non-Tender, Normal Capillary Refill Neurological: Alert, Normal Mood/Affect, Normal Cognition Psychiatric: Alert, Normal Cognition, Oriented, Tearful Skin Exam: Warm, Dry, Intact, Normal color, No rash #1 Interpretation EKG Date: 02/16/21 Time: 13:14 Rhythm: NSR (101) Rate (Beats/Min): 101 [place]: Normal P-Wave: Present QRS: Normal ST-T: Normal QT: Normal Comparison: NA - No Prior EKG EKG Interpretation Comments: Per Dr. Chapman interpretation: Sinus tachycardia, borderline repolarization abnormality COURSE, BEHAVIORAL HEALTH COMP - Course Vital Signs: Last Vital Signs Temp 98.1 F 02/16/21 12:18 Pulse 80 02/16/21 12:18 Resp 18 02/16/21 12:18 BP 159/97 H 02/16/21 12:18 Pulse Ox 92 L 02/16/21 12:18 Orders, Labs, Meds: Active Orders 24 hr Category Date Time Status EKG Documentation Completion [RC] STAT Care 02/16/21 12:58 Active Laboratory Tests 02/16/21 02/16/21 02/16/21 Range/Units 13:14 13:14 13:27 TSH 3rd Generation 0.709 (0.358-3.74) uIU/mL Urine HCG, Qual Negative (NEGATIVE) Salicylates 1.3 L (2.8-20) mg/dL Urine Opiates Screen (HDBGZG=981) Ur Buprenorphine Scrn (CUTOFF=10) Ur Oxycodone Screen (URO3PD=452) Urine Methadone Screen (MZROVB=731) Ur Propoxyphene Screen (SIHNMX=752) Acetaminophen 0 L (10-30) ug/mL Ur Barbiturates Screen (ZOYDOG=693) Ur Tricyclics Screen (CGWXUQ=585) Ur Phencyclidine Scrn (CUTOFF=25) Ur Amphetamine Screen (YGUNFF=393) U Methamphetamines Scrn (TDCJVD=655) U Benzodiazepines Scrn (JFVFDF=122) U Cocaine Metab Screen (QXUCHG=641) U Marijuana (THC) Screen (CUTOFF=50) Ethyl Alcohol 0.00 (0.00) gm% 02/16/21 Range/Units 13:27 TSH 3rd Generation (0.358-3.74) uIU/mL Urine HCG, Qual (NEGATIVE) Salicylates (2.8-20) mg/dL Urine Opiates Screen Negative (NMTUCX=395) Ur Buprenorphine Scrn Negative (CUTOFF=10) Ur Oxycodone Screen Negative (PBP4IH=229) Urine Methadone Screen Negative (DSRXAR=538) Ur Propoxyphene Screen Negative (CAUOAK=654) Acetaminophen (10-30) ug/mL Ur Barbiturates Screen Negative (GPSTIY=825) Ur Tricyclics Screen Negative (JQMYGC=696) Ur Phencyclidine Scrn Negative (CUTOFF=25) Ur Amphetamine Screen Negative (ISYHGU=471) U Methamphetamines Scrn Negative (JQKDXD=239) U Benzodiazepines Scrn Negative (KSXVKR=296) U Cocaine Metab Screen Negative (DYOWCT=969) U Marijuana (THC) Screen Negative (CUTOFF=50) Ethyl Alcohol (0.00) gm% Re-Assessment/Re-Exam: I spoke with the patient regarding her results and I will start her back on her Zoloft 100 mg daily. I will discharge her as I do not feel like she is a risk to harming herself or others. I will recommend that she follows up with [facility] as they have a psychologist on staff who can evaluate her and start her back up on the appropriate medications. I have also notified her that if she has any thoughts of harming herself or others that she is to return to the emergency department immediately. Departure - Departure Time of Disposition: 15:22 Disposition: Home, Self-Care 01 Condition: Good Clinical Impression: Depressive disorder - Discharge Information Prescriptions: Sertraline HCl [Zoloft] 50 mg PO DAILY #30 tablet Referrals: Zane Garcia MD [Primary Care Provider] - Forms: ED Department Discharge Additional Instructions: You are seen in the emergency department with complaints of hypomania and evaluation of psych. Labs were completed and these were unremarkable. You stated that you did not have any suicidal or homicidal ideations. You verbalized that you have no active plan to harm yourself and you have someone that can keep an eye on you. I have sent prescription to your pharmacy for Zoloft 50 mg to be taken daily. Keep in mind that this can take 3 to 6 weeks to have a noticeable effect. Recommend that you follow-up with [facility] as they have a psychologist on staff. This person would be best suited to start you on the appropriate psych medications. The phone number to schedule an appointment is [phone]. You can also contact [facility] for psychiatric services. Their phone number is [phone]. Should you have any thoughts of self-harm or if your condition worsens or changes do not hesitate returning to the emergency department. Sepsis Event Note (ED) - Evaluation Sepsis Screening Result: No Definite Risk - Focused Exam Vital Signs: Vital Signs Temp Pulse Resp BP Pulse Ox 02/16/21 12:18 98.1 F 80 18 159/97 H 92 L - My Orders Last 24 Hours: My Active Orders 02/16/21 12:58 EKG Documentation Completion [RC] STAT - Assessment/Plan Last 24 Hours: My Active Orders 02/16/21 12:58 EKG Documentation Completion [RC] STAT
[2021-02-16] MEDS ORDERED: LORazepam 0.5 MG Tab PO ONE (15:15)
== END 2021-02-16 15:47 | disposition home or self-care (01) ==
LOC: JD.ED 12:08
DX: F32.9 Major depressive disorder, single episode, unspecified (principal); R00.0 Tachycardia, unspecified; Z72.0 Tobacco use; Z88.0 Allergy status to penicillin; Z88.8 Allergy status to other drugs, medicaments and biological substances
CPT/HCPCS: 36415; 80143; 80179; 80306; 80307; 81025; 84443; 93005; 99284; A9270; 93010; 99283

== ENCOUNTER 2021-03-13 03:19 | Emergency (ER) | payer MEDICAID ==
[2021-03-13] MEDS ORDERED: Sodium Chloride 0.9% 10 ML Syringe FLUSH PRN (03:28)
[2021-03-13] MEDS ORDERED: HYDROmorphone 0.5 MG/0.5 ML Syringe IVPUSH ONE (03:28)
[2021-03-13 03:29] VITALS: BP 134/72; PULSE 150
[2021-03-13] MEDS ORDERED: HYDROmorphone 0.5 MG/0.5 ML Syringe ONE (03:30)
--- NOTE | 2021-03-13 03:34 | EDM.PDOC ---
ED HPI GENERAL MEDICAL PROBLEM - General Chief Complaint: Upper Extremity Injury/Pain Stated Complaint: INJURED LEFT WRIST Time Seen by Provider: 03/13/21 03:25 Source of Information: Reports: Patient, Family History Limitations: Reports: Intoxication - History of Present Illness INITIAL COMMENTS - FREE TEXT/NARRATIVE: The patient presents with left wrist pain and deformity. She fell and landed on her left wrist. She did not hit her head or hurt her neck. She has an obvious deformity to the left wrist. She is right handed. She has no other injuries. Onset: Sudden Duration: Minutes: Location: Reports: Upper Extremity, Left (wrist) Quality: Reports: Sharp Severity: Severe Improves with: Reports: Immobilization Worsens with: Reports: Movement Context: Reports: Trauma (Fall) Associated Symptoms: Reports: No Other Symptoms Left Wrist Pain Score (Numeric/FACES): 10 - Related Data Allergies Allergy/AdvReac Type Severity Reaction Status Date / Time bacitracin Allergy Intermediate Rash Verified 03/13/21 03:30 vitamin E (d-alpha Allergy Intermediate Rash Verified 03/13/21 03:30 tocopherol) Penicillins AdvReac Mild Vomiting Verified 03/13/21 03:30 Past Medical History HEENT History: Reports: Impaired Vision Other HEENT History: wears glasses Cardiovascular History: Reports: None Respiratory History: Reports: None Gastrointestinal History: Reports: GERD Genitourinary History: Reports: None 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 Neurological History: Reports: Migraines Psychiatric History: Reports: Anxiety Endocrine/Metabolic History: Reports: Hypothyroidism Hematologic History: Reports: None Immunologic History: Reports: None Oncologic (Cancer) History: Reports: Other (See Below) Other Oncologic History: melanoma Dermatologic History: Reports: Other (See Below) Other Dermatologic History: skin neoplasm, skin nenus, malignant melanoma - Infectious Disease History Infectious Disease History: Reports: None - Past Surgical History HEENT Surgical History: Reports: Oral Surgery Cardiovascular Surgical History: Reports: None Respiratory Surgical History: Reports: None GI Surgical History: Reports: Hernia, Inguinal Other GI Surgeries/Procedures: inguinal hernia repair Female Surgical History: Reports: Section, Hysterectomy, Oophorectomy Other Female Surgeries/Procedures: cervix removed, fallopian tubes removed, left ovary removed Endocrine Surgical History: Reports: None Neurological Surgical History: Reports: C-Spine Other Neurological Surgeries/Procedures: cervical fusion Musculoskeletal Surgical History: Reports: ORIF Other Musculoskeletal Surgeries/Procedures:: cervical fusion, foot surgery Oncologic Surgical History: Reports: Other (See Below) Other Oncologic Surgeries/Procedures: melanoma removed Dermatological Surgical History: Reports: Skin Biopsy Social & Family History - Family History Family Medical History: No Pertinent Family History - Caffeine Use Caffeine Use: Reports: None Caffeine Use Comment: maybe a cup per week - Living Situation & Occupation Living situation: Reports: (), with Spouse, with Family (2 kids) Occupation: Unemployed Review of Systems - Review of Systems Review Of Systems: See Below Constitutional: Reports: No Symptoms Eyes: Reports: No Symptoms Ears: Reports: No Symptoms Nose: Reports: No Symptoms Mouth/Throat: Reports: No Symptoms Respiratory: Reports: No Symptoms Cardiovascular: Reports: No Symptoms GI/Abdominal: Reports: No Symptoms Genitourinary: Reports: No Symptoms Musculoskeletal: Reports: Other (Left wrist deformity and pain) ED EXAM, GENERAL - Physical Exam Exam: See Below Exam Limited By: No Limitations General Appearance: Alert, No Apparent Distress Ears: Normal External Exam Nose: Normal Inspection Head: Atraumatic, Normocephalic Neck: Normal Inspection, Supple, Non-Tender Respiratory/Chest: No Respiratory Distress, Lungs Clear, Normal Breath Sounds Cardiovascular: Regular Rate, Rhythm, No Edema, No Murmur GI/Abdominal: Soft, Non-Tender, No Organomegaly, No Mass Back Exam: Normal Inspection Extremities: Other (Pain upon palpation with edema and deformity of the left wrist. Good capillary refill and sensation distally.) ED TRAUMA EXTREMITY PROCEDURES - Joint Reduction Left Wrist Sedation: Hematoma/Fracture Block Local Anesthesia - Lidocaine (Xylocaine): 1% Plain Local Anesthetic Volume: 4cc Pre-Procedure NV Status: Normal Post-Procedure NV Status: Normal Technique: Other (Direct presssure) Number of Attempts: 1 Post-Reduction Imaging: Completely Reduced, Acceptably Reduced Joint Reduction Complications: No - Splinting Left Upper Extremity Splint Site: Left wrist Pre-Procedure NV Status: Normal Post-Procedure NV Status: Normal Splint Material: Fiberglass Splint Design: Sugar Tong Applied & Form Fitted By: Provider Provider Post-Splint Application NV Check: NV Status Normal, Good Position Complications: No Course - Vital Signs Last Recorded V/S: Last Vital Signs Temp 97 F 03/13/21 03:26 Pulse 150 H 03/13/21 03:26 Resp 22 H 03/13/21 03:26 BP 134/72 03/13/21 03:26 Pulse Ox 100 03/13/21 03:26 - Orders/Labs/Meds Orders: Active Orders 24 hr Category Date Time Status Peripheral IV Care [RC] . DIRECTED Care 03/13/21 03:28 Active Wrist 2V Lt [CR] Stat Exams 03/13/21 03:29 Ordered Wrist 2V Lt [CR] Stat Exams 03/13/21 04:04 Ordered Sodium Chloride 0.9% [Saline Flush] Med 03/13/21 03:28 Active 10 ml FLUSH ASDIRECTED PRN Peripheral IV Insertion Adult [OM.PC] Routine Oth 03/13/21 03:28 Ordered Medication Orders Sodium Chloride (Sodium Chloride 0.9% 10 Ml Syringe) 10 ml FLUSH ASDIRECTED PRN PRN Reason: Keep Vein Open Last Admin: 03/13/21 03:40 Dose: 10 ml Documented by: MICHAEL Meds: Medications Generic Name Dose Route Start Last Admin Trade Name Freq PRN Reason Stop Dose Admin Sodium Chloride 10 ml 03/13/21 03:28 03/13/21 03:40 Sodium Chloride 0.9% 10 Ml Syringe FLUSH 10 ml ASDIRECTED PRN Administration Keep Vein Open Discontinued Medications Generic Name Dose Route Start Last Admin Trade Name Freq PRN Reason Stop Dose Admin Fentanyl 100 mcg 03/13/21 03:48 03/13/21 03:57 Fentanyl 100 Mcg/2 Ml Sdv IVPUSH 03/13/21 03:49 100 mcg ONETIME ONE Administration Hydromorphone HCl 0.5 mg 03/13/21 03:28 03/13/21 03:32 Hydromorphone 0.5 Mg/0.5 Ml Syringe IVPUSH 03/13/21 03:29 0.5 mg ONETIME ONE Administration Hydromorphone HCl Confirm 03/13/21 03:30 03/13/21 03:41 Hydromorphone 0.5 Mg/0.5 Ml Syringe Administered 03/13/21 03:31 Not Given Dose 0.5 mg .ROUTE .STK-MED ONE Lidocaine HCl 10 ml 03/13/21 03:42 03/13/21 03:57 Lidocaine 1% 10 Ml Mdv INJECT 03/13/21 03:43 10 ml ONETIME ONE Administration Midazolam HCl 2 mg 03/13/21 03:49 03/13/21 03:58 Midazolam 1 Mg/Ml 2 Ml Sdv IVPUSH 03/13/21 03:50 2 mg ONETIME ONE Administration - Re-Assessments/Exams Free Text/Narrative Re-Assessment/Exam: 03/13/21 03:33 I ordered an IV saline lock, dilaudid 0.5mg IV and an x-ray of her wrist. 03/13/21 04:16 The x-ray shows a distal radius and ulnar styloid fracture. I gave her versed 2mg for anxiety and fentanyl 100mcg for pain and I used 4ccs of lidocaine for a hematoma block. I was able to reduce the fracture. I put a splint on her arm. I will have her follow up with Dr Hannah. Departure - Departure Time of Disposition: 04:20 Disposition: Home, Self-Care 01 Condition: Good Clinical Impression: Fall Qualifiers: Encounter type: initial encounter Qualified Code(s): W19.XXXA - Unspecified fall, initial encounter Distal radius fracture, left Qualifiers: Encounter type: initial encounter Fracture type: closed Fracture morphology: other fracture Qualified Code(s): S52.592A - Other fractures of lower end of left radius, initial encounter for closed fracture Fracture of ulnar styloid Qualifiers: Encounter type: initial encounter Fracture type: closed Fracture alignment: displaced Laterality: left Qualified Code(s): S52.612A - Displaced fracture of left ulna styloid process, initial encounter for closed fracture - Discharge Information *PRESCRIPTION DRUG MONITORING PROGRAM REVIEWED*: Not Applicable *COPY OF PRESCRIPTION DRUG MONITORING REPORT IN PATIENT JENNIFER: Not Applicable Referrals: Steff Calvillo NP [Primary Care Provider] - David Hannah MD [Physician] - 1 Week Forms: ED Department Discharge Additional Instructions: Ice your wrist for 15 to 30 minutes per day for 5 days. Take tylenol or motrin for pain. Call Dr Hannah's office later today for a follow up appointment early next week. Please return if you are worse. Sepsis Event Note (ED) - Evaluation Sepsis Screening Result: No Definite Risk - Focused Exam Vital Signs: Vital Signs Temp Pulse Resp BP Pulse Ox 03/13/21 03:26 97 F 150 H 22 H 134/72 100 - My Orders Last 24 Hours: My Active Orders 03/13/21 03:28 Peripheral IV Care [RC] . DIRECTED Sodium Chloride 0.9% [Saline Flush] 10 ml FLUSH ASDIRECTED PRN Peripheral IV Insertion Adult [OM.PC] Routine 03/13/21 03:29 Wrist 2V Lt [CR] Stat 03/13/21 04:04 Wrist 2V Lt [CR] Stat - Assessment/Plan Last 24 Hours: My Active Orders 03/13/21 03:28 Peripheral IV Care [RC] . DIRECTED Sodium Chloride 0.9% [Saline Flush] 10 ml FLUSH ASDIRECTED PRN Peripheral IV Insertion Adult [OM.PC] Routine 03/13/21 03:29 Wrist 2V Lt [CR] Stat 03/13/21 04:04 Wrist 2V Lt [CR] Stat
[2021-03-13] MEDS ORDERED: Lidocaine 1% 10 ML MDV INJECT ONE (03:42)
[2021-03-13] MEDS ORDERED: fentaNYL 100 MCG/2 ML SDV IVPUSH ONE (03:48)
[2021-03-13] MEDS ORDERED: Midazolam 1 MG/ML 2 ML SDV IVPUSH ONE (03:49)
--- NOTE | 2021-03-13 09:16 | CR ---
Left wrist: 2 views of the left wrist were obtained. Comparison: No prior wrist exam is available. Slightly comminuted fracture is noted within the distal radius. Posterior dislocation is seen of the distal radial fragment. Fracture is noted within the base of the ulnar styloid process. Diffuse soft tissue swelling is present. Impression: 1. Displaced wrist fracture as noted above. Diagnostic code #3
--- NOTE | 2021-03-13 09:17 | CR ---
Left wrist: 3 views of the left wrist were obtained. Comparison: Prior wrist study performed earlier on the same day (3:18 AM). Previous comminuted distal radial fracture shows evidence of reduction. Articular extension is seen. Very minimal posterior tilting of the distal radial articular margin is noted. Fracture is seen at the base of the ulnar styloid process. Soft tissue swelling is noted. No additional abnormality is appreciated. Impression: 1. Distal left radial fracture with articular extension which shows mild posterior tilting. Alignment is otherwise significantly improved from prior exam. 2. Ulnar styloid avulsion fracture. Diagnostic code #3
== END 2021-03-13 04:36 | disposition home or self-care (01) ==
LOC: JD.ED 03:19
DX: S52.592A Other fractures of lower end of left radius, initial encounter for closed fracture (principal); S52.612A Displaced fracture of left ulna styloid process, initial encounter for closed fracture; Z88.1 Allergy status to other antibiotic agents; Z91.048 Other nonmedicinal substance allergy status; Z88.0 Allergy status to penicillin; W18.30XA Fall on same level, unspecified, initial encounter
CPT/HCPCS: 25605; 73100; 73110; 96374; 96375; 99283; J1170; J2250; J3010; 99284

== ENCOUNTER 2021-03-18 08:27 | Day surgery (SDC) | payer MEDICAID ==
[~2021-03-18 08:27] MED LIST changes: +Dexamethasone 4 MG/ML 5 ML MDV ONE; +Ketorolac 15 MG/ML SDV ONE; +Lactated Ringers 1,000 ML ONE; +Lidocaine 1% 4 ML ONE; +Midazolam 1 MG/ML 2 ML SDV ONE; +Ondansetron 4 MG/2 ML SDV ONE; +Propofol 200 MG/20 ML SDV ONE; +ceFAZolin 1 GM Vial ONE; +fentaNYL 100 MCG/2 ML SDV ONE
[2021-03-18] MEDS ORDERED: Bupivacaine 0.25% 10 ML SDV ONE (08:30)
[2021-03-18] MEDS ORDERED: Ondansetron 4 MG/2 ML SDV IVPUSH PRN (08:36)
[2021-03-18] MEDS ORDERED: fentaNYL 100 MCG/2 ML SDV IVPUSH PRN (08:36)
--- NOTE | 2021-03-18 09:17 | PCM.PREANE ---
Preanesthetic Assessment - Procedure Proposed Procedure: ORIF Left Radius Fracture - Anesthesia/Transfusion/Family Hx Anesthesia History: Prior Anesthesia Without Reaction Family History of Anesthesia Reaction: No Transfusion History: No Prior Transfusion(s) - Review of Systems General: No Symptoms Pulmonary: Other (Current some day smoker) Cardiovascular: No Symptoms Gastrointestinal: No Symptoms Neurological: Headache (Migraines), Numbness (Left Arm, chronic from buldging disc in neck. Status post cervical neck fusion. ) Other: Reports: Neck Pain, Depression, Anxiety - Physical Assessment NPO Status Date: 03/17/21 NPO Status Time: 18:30 Vital Signs: Last Vital Signs Temp 37.2 C 03/18/21 08:20 Pulse 78 03/18/21 08:20 Resp 16 03/18/21 08:20 BP 135/92 H 03/18/21 08:20 Pulse Ox 100 03/18/21 08:20 Height: 1.52 m Weight: 58.967 kg ASA Class: 2 Mental Status: Alert & Oriented x3 Airway Class: Mallampati = 2 Dentition: Reports: Normal Dentition Thyro-Mental Finger Breadths: 3 Mouth Opening Finger Breadths: 3 ROM/Head Extension: Full Lungs: Clear to Auscultation, Normal Respiratory Effort Cardiovascular: Regular Rate, Regular Rhythm - Imaging/EKG Impressions: Sinus Tachycardia at 101 bpm - Allergies Allergies/Adverse Reactions: Allergies Allergy/AdvReac Type Severity Reaction Status Date / Time bacitracin Allergy Intermediate Rash Verified 03/13/21 03:30 vitamin E (d-alpha Allergy Intermediate Rash Verified 03/13/21 03:30 tocopherol) nalbuphine [From Nubain] Allergy Hives Verified 03/18/21 09:00 Penicillins AdvReac Mild Vomiting Verified 03/13/21 03:30 - Anesthesia Plan Pre-Op Medication Ordered: Anxiolytic (Midazolam ) - Acknowledgements Anesthesia Type Planned: General Anesthesia (LMA [place]) Pt an Appropriate Candidate for the Planned Anesthesia: Yes Alternatives and Risks of Anesthesia Discussed w Pt/Guardian: Yes Pt/Guardian Understands and Agrees with Anesthesia Plan: Yes PreAnesthesia Questionnaire HEENT History: Reports: Impaired Vision Other HEENT History: wears glasses Cardiovascular History: Reports: None Respiratory History: Reports: None Gastrointestinal History: Reports: GERD Genitourinary History: Reports: None 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 Neurological History: Reports: Migraines Psychiatric History: Reports: Anxiety Endocrine/Metabolic History: Reports: Hypothyroidism Hematologic History: Reports: None Immunologic History: Reports: None Oncologic (Cancer) History: Reports: Other (See Below) Other Oncologic History: melanoma Dermatologic History: Reports: Other (See Below) Other Dermatologic History: skin neoplasm, skin nenus, malignant melanoma - Infectious Disease History Infectious Disease History: Reports: None - Past Surgical History HEENT Surgical History: Reports: Oral Surgery Cardiovascular Surgical History: Reports: None Respiratory Surgical History: Reports: None GI Surgical History: Reports: Hernia, Inguinal Other GI Surgeries/Procedures: inguinal hernia repair Female Surgical History: Reports: Section, Hysterectomy, Oophorectomy Other Female Surgeries/Procedures: cervix removed, fallopian tubes removed, left ovary removed Endocrine Surgical History: Reports: None Neurological Surgical History: Reports: C-Spine Other Neurological Surgeries/Procedures: cervical fusion Musculoskeletal Surgical History: Reports: ORIF Other Musculoskeletal Surgeries/Procedures:: cervical fusion, foot surgery Oncologic Surgical History: Reports: Other (See Below) Other Oncologic Surgeries/Procedures: melanoma removed Dermatological Surgical History: Reports: Skin Biopsy - HOME MEDS Home Medications: Home Meds Acetaminophen/HYDROcodone [[place] 325-5 MG] 1 - 2 tab PO Q4HR PRN 03/18/21 [ History] Amphetamine/Dextroamphetamine [Adderall XR] 15 mg PO BID 03/18/21 [History] Prazosin [Minpress] 2 mg PO ASDIRECTED PRN 03/18/21 [History] Topiramate 50 mg PO ASDIRECTED 03/18/21 [History] Venlafaxine [Effexor XR] 150 mg PO DAILY 03/18/21 [History] hydrOXYzine HCL [hydrOXYzine] 25 mg PO BEDTIME PRN 03/18/21 [History] - CURRENT (IN HOUSE) MEDS Current Meds: Current Medications Fentanyl (Fentanyl 100 Mcg/2 Ml Sdv) 50 mcg IVPUSH Q5M PRN PRN Reason: Pain Stop: 03/18/21 12:00 Hydromorphone HCl (Hydromorphone 0.5 Mg/0.5 Ml Syringe) 0.5 mg IVPUSH Q10M PRN PRN Reason: Pain (severe 7-10) Stop: 03/18/21 12:00 Lactated Ringer's (Ringers, Lactated) 1,000 mls @ 125 mls/hr IV ASDIRECTED CRISSY Stop: 03/18/21 23:00 Last Admin: 03/18/21 08:40 Dose: 125 mls/hr Documented by: Lidocaine/Sodium Bicarbonate (Lidocaine 1%/Sod Bicarbonate In Ns 8.4% 1 Ml Syringe) 0.25 ml IDERM ONETIME PRN PRN Reason: Prior to IV Start Stop: 03/18/21 18:00 Ondansetron HCl (Ondansetron 4 Mg/2 Ml Sdv) 4 mg IVPUSH ONETIME PRN PRN Reason: Nausea/Vomiting Stop: 03/18/21 12:00 Sodium Chloride (Sodium Chloride 0.9% 10 Ml Syringe) 10 ml FLUSH ASDIRECTED PRN PRN Reason: Keep Vein Open Stop: 03/18/21 18:00 Discontinued Medications Bupivacaine HCl (Bupivacaine 0.25% 10 Ml Sdv) Confirm Administered Dose 20 ml .ROUTE .STK-MED ONE Stop: 03/18/21 08:31 Cefazolin Sodium (Cefazolin 1 Gm Vial) Confirm Administered Dose 2 gm .ROUTE .STK-MED ONE Stop: 03/18/21 07:23 Dexamethasone (Dexamethasone 4 Mg/Ml 5 Ml Mdv) Confirm Administered Dose 20 mg .ROUTE .STK-MED ONE Stop: 03/18/21 07:26 Fentanyl (Fentanyl 100 Mcg/2 Ml Sdv) Confirm Administered Dose 100 mcg .ROUTE .STK-MED ONE Stop: 03/18/21 07:23 Lactated Ringer's (Ringers, Lactated) Confirm Administered Dose 1,000 mls @ as directed .ROUTE .STK-MED ONE Stop: 03/18/21 07:23 Lidocaine HCl (Xylocaine-Mpf 1%) Confirm Administered Dose 4 mls @ as directed .ROUTE .STK-MED ONE Stop: 03/18/21 07:23 Ketorolac Tromethamine (Ketorolac 15 Mg/Ml Sdv) Confirm Administered Dose 15 mg .ROUTE .STK-MED ONE Stop: 03/18/21 07:24 Midazolam HCl (Midazolam 1 Mg/Ml 2 Ml Sdv) Confirm Administered Dose 2 mg .ROUTE .STK-MED ONE Stop: 03/18/21 07:23 Ondansetron HCl (Ondansetron 4 Mg/2 Ml Sdv) Confirm Administered Dose 4 mg .ROUTE .STK-MED ONE Stop: 03/18/21 07:23 Propofol (Propofol 200 Mg/20 Ml Sdv) Confirm Administered Dose 400 mg .ROUTE .STK-MED ONE Stop: 03/18/21 07:23
[2021-03-18] MEDS ORDERED: fentaNYL 100 MCG/2 ML SDV ONE ×2 (09:33→10:58)
[2021-03-18] MEDS ORDERED: Propofol 200 MG/20 ML SDV ONE (09:48)
[2021-03-18] MEDS ORDERED: HYDROmorphone 0.5 MG/0.5 ML Syringe ONE ×2 (10:41→10:57)
--- NOTE | 2021-03-18 11:09 | PCM.POSTAN ---
POST ANESTHESIA ASSESSMENT - MENTAL STATUS Mental Status: Oriented, Other (Drowsy, follows commands. ) - VITAL SIGNS Vital Signs: Last Vital Signs Temp 36.2 C 03/18/21 10:59 Pulse 90 03/18/21 10:59 Resp 10 L 03/18/21 10:59 BP 114/74 03/18/21 10:59 Pulse Ox 100 03/18/21 10:59 - RESPIRATORY Respiratory Status: Respiratory Rate WNL, Airway Patent, O2 Saturation Stable, Supplemental Oxygen - CARDIOVASCULAR CV Status: Pulse Rate WNL, Blood Pressure Stable - GASTROINTESTINAL GI Status: No Symptoms - PAIN Pain Score: 5 (fentanyl given) - POST OP HYDRATION Hydration Status: Adequate & Stable
[2021-03-18] MEDS: HYDROmorphone 0.5 MG/0.5 ML Syringe IVPUSH PRN ×2 (11:19→11:45)
--- NOTE | 2021-03-18 11:24 | CR ---
Left radius: Multiple fluoroscopic spot views of the left radius were obtained in the operating room utilizing C-arm device. Comparison: Prior left wrist study of 03/13/21. Previous fracture shows evidence of reduction and fixation with plate and screws. Alignment on final films appear to be close to anatomic. Small fracture is noted within the ulnar styloid process. Fluoroscopy time given as 34.8 seconds. Impression: 1. Procedural study as noted above. Diagnostic code #2
[2021-03-18] MEDS ORDERED: oxyCODONE 5 MG Tab PO ONE (13:01)
--- NOTE | 2021-03-18 13:19 | PCM48HPAN ---
Post Anesthesia Note - EVALUATION WITHIN 48HRS OF ANESTHETIC Vital Signs in Normal Range: Yes Patient Participated in Evaluation: Yes Respiratory Function Stable: Yes Airway Patent: Yes Cardiovascular Function Stable: Yes Hydration Status Stable: Yes Pain Control Satisfactory: Yes Nausea and Vomiting Control Satisfactory: Yes Mental Status Recovered: Yes Vital Signs: Last Vital Signs Temp 36.3 C 03/18/21 12:00 Pulse 87 03/18/21 13:00 Resp 15 03/18/21 13:00 BP 136/82 03/18/21 13:00 Pulse Ox 97 03/18/21 13:00
[2021-03-18 13:43] VITALS: BP 139/90; PULSE 91
--- NOTE | 2021-03-24 13:29 | PCM.OPNOTE ---
- General Post-Op/Procedure Note Date of Surgery/Procedure: 03/18/21 Operative Procedure(s): open reduction internal fixation left radial shaft fracture Pre Op Diagnosis: left radial shaft fracture Post-Op Diagnosis: Same Anesthesia Technique: General LMA, Local Primary Surgeon: David Hannah Anesthesia Provider: Clarice Arroyo [employer]ocker Metal Base: Delores Griffin EBL in mLs: 5 Complications: None Condition: Good
--- NOTE | 2021-03-31 11:58 | OR ---
DATE OF OPERATION: 03/18/2021 SURGEON: David Hannah MD OPERATION PERFORMED: Open reduction and internal fixation of left distal radius fracture. PREOPERATIVE DIAGNOSIS: Left distal radius fracture, comminuted, intra-articular. POSTOPERATIVE DIAGNOSIS: Left distal radius fracture, comminuted, intra-articular. ANESTHESIA: General LMA with local. ANESTHESIA PROVIDER: Siobhan Eagle. MAINTENANCE AND CUSTODIAN SUPERVISOR: Delores Griffin PA-C ESTIMATED BLOOD LOSS: 5 mL. COMPLICATIONS: None. CONDITION: Stable. DESCRIPTION OF PROCEDURE: The patient was identified in the preoperative holding area. Proper site was marked and identified by surgeon. The patient was taken back to the operative theater, where after adequate anesthesia, the patient's left upper extremity had an attempted closed reduction, but secondary to the displaced intra-articular nature of this, it did not reduce, and we decided to go to open reduction and internal fixation. Nonsterile tourniquet was applied to the left upper extremity. The left upper extremity was then sterilely prepped and draped in the usual sterile fashion. OR time-out was performed. The patient received 2 g IV Ancef. Left upper extremity was exsanguinated. Tourniquet was insufflated to 200 mmHg. Standard volar approach of Claude was done to the FCR tendon. FCR tendon was retracted ulnarly to protect the median nerve. At this time, the patient had a complete periosteal stripping of the pronator and the fracture site was identified. At this time, a closed reduction maneuver was done under C- arm fluoroscopy, reducing all fragments, greater than 3 fragments intra- articular fracture under anatomic reduction. K-wires were then placed through the radial styloid to hold it in place. A Leora volar locking plate was then placed under direct C-arm fluoroscopy showing it to be in good position. Once this was done, a nonlocking screw was placed both proximally and distally to hold the plate in place. Five more locking screws were placed distally through the fracture site. It had anatomic reduction on both AP, lateral, and 23-degree lateral views showing all the screws to be extra-articular. One was just in the subarticular cartilage, but it was noted to be extra-articular on all views. One more cortical screw and 1 more locking screw were then placed in the shaft. It was found to have adequate fixation. I did do a Shuck test. There was no DRUJ instability noted. Final C-arm fluoroscopy views were taken. Adequate saline was irrigated through the wound. 3-0 Vicryl was used subcutaneously, and Monocryl was used for closure of the skin. The patient was placed in a sterile soft dressing and a volar slab splint and sent to the PACU in stable condition. FERMIN /[id number]
== END 2021-03-18 13:27 | disposition home or self-care (01) ==
LOC: JD.SDS 08:27
PROVIDERS: ATTEND Orthopaedic Surgery
DX: S52.572A Other intraarticular fracture of lower end of left radius, initial encounter for closed fracture (principal); S52.612A Displaced fracture of left ulna styloid process, initial encounter for closed fracture; K21.9 Gastro-esophageal reflux disease without esophagitis; Z88.8 Allergy status to other drugs, medicaments and biological substances; Z88.0 Allergy status to penicillin; Z98.890 Other specified postprocedural states; Z87.891 Personal history of nicotine dependence; Z79.899 Other long term (current) drug therapy
CPT/HCPCS: 25609; 76000; A9270; C1713; C1776; J0690; J1100; J1170; J1885; J2250; J2405; J2704; J3010; J3490; J7120; 01830

== ENCOUNTER 2021-04-05 23:56 | Emergency (ER) | payer MEDICAID ==
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
[2021-04-06 00:39] VITALS: BP 168/101; PULSE 115
--- NOTE | 2021-04-06 06:01 | CR ---
Left wrist: 4 views of the left wrist were obtained. Comparison: Prior wrist study of 03/13/21. Plate and screws are seen within the distal radius affixing previous comminuted fracture noted on old study. Stable fracture is noted within the ulnar styloid process. Soft tissue swelling is noted. No acute fracture, dislocation or other bony abnormality is appreciated. Impression: 1. Plate and screws affixing previous fracture within the distal radius. 2. Stable ulnar styloid avulsion fracture. 3. Soft tissue swelling with no acute osseous finding is seen. Diagnostic code #2
== END 2021-04-06 03:09 | disposition home or self-care (01) ==
LOC: JD.ED 23:56
DX: S60.212A Contusion of left wrist, initial encounter (principal); S00.81XA Abrasion of other part of head, initial encounter; Z88.0 Allergy status to penicillin; Z88.5 Allergy status to narcotic agent; Z88.8 Allergy status to other drugs, medicaments and biological substances; Y04.2XXA Assault by strike against or bumped into by another person, initial encounter
CPT/HCPCS: 29125; 73110-26-LT; 73110-LT; 99283; 99283-25

== ENCOUNTER 2021-05-24 15:10 | Emergency (ER) | payer BC, MEDICAID ==
[2021-05-24 15:22] VITALS: BP 155/95; PULSE 98
--- NOTE | 2021-05-24 16:38 | EDM.PDOC ---
ED HPI GENERAL MEDICAL PROBLEM - General Chief Complaint: Upper Extremity Injury/Pain Stated Complaint: L ARM INJURY Time Seen by Provider: 05/24/21 15:19 Source of Information: Reports: Patient History Limitations: Reports: No Limitations - History of Present Illness INITIAL COMMENTS - FREE TEXT/NARRATIVE: 35-year-old female presents the emergency department with complaints of a left elbow injury. Per the patient report she was intoxicated last evening when she somehow slipped and fell over backwards while she was in her garage. She states that she landed directly on her left elbow. She states that last night she did apply ice and has taken Tylenol and ibuprofen. She states that when she woke up this morning she was not able to flex or extend her arm at the elbow. She denies hitting her head when she fell. She has not had any previous injury to the elbow however she recently had surgery approximately 1 month ago on the left wrist with a plate placed due to her fracture. Left Elbow Pain Score (Numeric/FACES): 8 - Related Data Allergies Allergy/AdvReac Type Severity Reaction Status Date / Time bacitracin Allergy Intermediate Rash Verified 04/06/21 00:14 vitamin E (d-alpha Allergy Intermediate Rash Verified 04/06/21 00:14 tocopherol) nalbuphine [From Nubain] Allergy Hives Verified 04/06/21 00:14 Penicillins AdvReac Mild Vomiting Verified 04/06/21 00:14 Home Meds: Home Meds Acetaminophen/HYDROcodone [[place] 325-5 MG] 1 - 2 tab PO Q4HR PRN 03/18/21 [History] Amphetamine/Dextroamphetamine [Adderall XR] 15 mg PO BID 03/18/21 [History] Prazosin [Minpress] 2 mg PO ASDIRECTED PRN 03/18/21 [History] Topiramate 50 mg PO ASDIRECTED 03/18/21 [History] Venlafaxine [Effexor XR] 150 mg PO DAILY 03/18/21 [History] hydrOXYzine HCL [hydrOXYzine] 25 mg PO BEDTIME PRN 03/18/21 [History] Past Medical History HEENT History: Reports: Impaired Vision Other HEENT History: wears glasses Cardiovascular History: Reports: None Respiratory History: Reports: None Gastrointestinal History: Reports: GERD Genitourinary History: Reports: None DIRECTOR NICU History: Reports: 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 Other DIRECTOR NICU History: dyspareunia, intermenstrual bleeding, metorrhagia, pelvic pain, retroflexion of uterus---hysterectomy done to fix problems Musculoskeletal History: Reports: Other (See Below) Other Musculoskeletal History: neck fusion--x-rays done 3 weeks ago reveal C- spine fusion between C5-C6 level and degenerative disc changes at the C6-7 level. Neurological History: Reports: Migraines Psychiatric History: Reports: Anxiety Endocrine/Metabolic History: Reports: Hypothyroidism Hematologic History: Reports: None Immunologic History: Reports: None Oncologic (Cancer) History: Reports: Other (See Below) Other Oncologic History: melanoma Dermatologic History: Reports: Other (See Below) Other Dermatologic History: skin neoplasm, skin nenus, malignant melanoma - Infectious Disease History Infectious Disease History: Reports: None - Past Surgical History HEENT Surgical History: Reports: Oral Surgery Cardiovascular Surgical History: Reports: None Respiratory Surgical History: Reports: None GI Surgical History: Reports: Hernia, Inguinal Other GI Surgeries/Procedures: inguinal hernia repair Female Surgical History: Reports: Section, Hysterectomy, Oophorectomy Other Female Surgeries/Procedures: cervix removed, fallopian tubes removed, left ovary removed Endocrine Surgical History: Reports: None Neurological Surgical History: Reports: C-Spine Other Neurological Surgeries/Procedures: cervical fusion Musculoskeletal Surgical History: Reports: ORIF Other Musculoskeletal Surgeries/Procedures:: cervical fusion, foot surgery Oncologic Surgical History: Reports: Other (See Below) Other Oncologic Surgeries/Procedures: melanoma removed Dermatological Surgical History: Reports: Skin Biopsy Social & Family History - Family History Family Medical History: No Pertinent Family History - Tobacco Use Tobacco Use Status *Q: Never Tobacco User - Caffeine Use Caffeine Use: Reports: Coffee, Energy Drinks, Soda, Tea Caffeine Use Comment: maybe a cup per week - Recreational Drug Use Recreational Drug Use: No - Living Situation & Occupation Living situation: Reports: (), with Spouse, with Family (2 kids) Occupation: Unemployed Review of Systems - Review of Systems Review Of Systems: Comprehensive ROS is negative, except as noted in HPI. ED EXAM, GENERAL - Physical Exam Exam: See Below Exam Limited By: No Limitations General Appearance: Alert, WD/WN, Mild Distress Ears: Normal External Exam, Hearing Grossly Normal Nose: Normal Inspection Throat/Mouth: Normal Inspection, Normal Lips, Normal Voice, No Airway Compromise Head: Atraumatic, Normocephalic Neck: Normal Inspection, Supple, Non-Tender Respiratory/Chest: No Respiratory Distress, No Accessory Muscle Use Cardiovascular: Normal Peripheral Pulses, Regular Rate, Rhythm, No Edema, No Murmur Peripheral Pulses: 2+: Radial (L), Radial (R) GI/Abdominal: No Distention (Female) Exam: Deferred Rectal (Female) Exam: Deferred Back Exam: Normal Inspection Extremities: Joint Swelling (Left elbow), Limited Range of Motion (Left elbow). No: Non-Tender (Tenderness noted to the left elbow and distal posterior humerus) Neurological: Alert, Oriented, Normal Cognition Psychiatric: Normal Affect, Normal Mood Skin Exam: Warm, Dry, Intact, Normal Color, No Rash Lymphatic: No Adenopathy ED TRAUMA EXTREMITY PROCEDURES - Splinting Left Upper Extremity Splint Site: left forearm Pre-Procedure NV Status: Normal Post-Procedure NV Status: Normal Splint Material: Fiberglass Splint Design: Posterior Applied & Form Fitted By: Provider, Nurse Provider Post-Splint Application NV Check: NV Status Normal, Good Position Complications: No Course - Vital Signs Text/Narrative:: Patient presents with left elbow injury. This occurred late last evening. She is not sure of the time as she states she was fairly intoxicated. Patient does have a significant amount of tenderness to left elbow. She also has tenderness noted to distal posterior humerus. CMS is still intact to her fingers. Radial pulses present. As stated previously the patient is unable to flex or extend her arm at the elbow. Full range of motion noted to her shoulder. I have ordered an x-ray of the left humerus and left forearm. Last Recorded V/S: Last Vital Signs Temp 97.7 F 05/24/21 15:18 Pulse 98 05/24/21 15:18 Resp 16 05/24/21 15:18 BP 155/95 H 05/24/21 15:18 Pulse Ox 98 05/24/21 15:18 - Orders/Labs/Meds Orders: Active Orders 24 hr Category Date Time Status Forearm 2V Lt [CR] Stat Exams 05/24/21 15:35 Taken Humerus Lt [CR] Stat Exams 05/24/21 15:35 Taken DME for Discharge [COMM] Stat Oth 05/24/21 17:08 Ordered - Re-Assessments/Exams Free Text/Narrative Re-Assessment/Exam: 05/24/21 16:51 [facility] radiologist impression x-ray of the left humerus: 1. 3 mm displaced fracture through the trochlear notch of the ulna. 2 intact humerus [facility] radiologist impression x-ray of the left forearm: There is a 3 mm displaced fracture through the trochlear notch of the ulna. I will place a long arm posterior splint on the patient and then she will need to follow up with Dr. Hannah, orthopedic surgeon. Departure - Departure Time of Disposition: 17:19 Disposition: Home, Self-Care 01 Condition: Good Clinical Impression: Fracture of ulna Qualifiers: Encounter type: initial encounter Ulna location: proximal ulna Fracture type: closed Fracture morphology: unspecified fracture morphology Laterality: left Qualified Code(s): S52.002A - Unspecified fracture of upper end of left ulna, initial encounter for closed fracture - Discharge Information Instructions: Pain Medicine Instructions, [id number] Referrals: Steff Calvillo NP [Primary Care Provider] - Forms: ED Department Discharge Additional Instructions: You were seen in the emergency department today with a left elbow injury. X- rays were completed and this did show that you have a fracture in your elbow. A splint was placed and this needs to remain on 13/06. Do not get the splint wet. You will need to follow-up with orthopedic surgeon, Dr. Hannah, this week. You can phone his office at [phone]. You may take Tylenol 650 mg alternating every 4 hours with ibuprofen 600 mg for the next 48 hours. This should adequately control your pain if you do stay on top of that and take it every 4 hours. Should your condition worsen or change, do not hesitate returning the emergency department. Sepsis Event Note (ED) - Evaluation Sepsis Screening Result: No Definite Risk - Focused Exam Vital Signs: Vital Signs Temp Pulse Resp BP Pulse Ox 05/24/21 15:18 97.7 F 98 16 155/95 H 98 - My Orders Last 24 Hours: My Active Orders 05/24/21 15:35 Forearm 2V Lt [CR] Stat Humerus Lt [CR] Stat 05/24/21 17:08 DME for Discharge [COMM] Stat - Assessment/Plan Last 24 Hours: My Active Orders 05/24/21 15:35 Forearm 2V Lt [CR] Stat Humerus Lt [CR] Stat 05/24/21 17:08 DME for Discharge [COMM] Stat
--- NOTE | 2021-05-25 12:47 | CR ---
Left forearm: 2 views of the left forearm were obtained. Comparison: Prior wrist exam dated 04/06/21. Plate and screws are identified within the distal radius which affixes an old right radial fracture. Ununited ulnar styloid avulsion fracture is noted. Fracture is seen within the olecranon process. Joint effusion is noted within the elbow. Impression: 1. Old fracture within the wrist. Orthopedic hardware in place. 2. Acute fracture within the olecranon process with joint effusion. Diagnostic code #3
--- NOTE | 2021-05-25 12:47 | CR ---
Left humerus: 2 views of the left humerus were obtained. Comparison: No prior humerus study is available. Olecranon process fracture is seen. Joint effusion is also noted within the elbow. Other portions of the left humerus study are unremarkable. Impression: 1. Olecranon process fracture with joint effusion. 2. Other portions of the left humerus exam are unremarkable. Diagnostic code #3
== END 2021-05-24 17:30 | disposition home or self-care (01) ==
LOC: JD.ED 15:10
DX: S52.002A Unspecified fracture of upper end of left ulna, initial encounter for closed fracture (principal); Z88.1 Allergy status to other antibiotic agents; Z88.8 Allergy status to other drugs, medicaments and biological substances; Z88.0 Allergy status to penicillin; G43.909 Migraine, unspecified, not intractable, without status migrainosus; Z79.899 Other long term (current) drug therapy; W01.0XXA Fall on same level from slipping, tripping and stumbling without subsequent striking against object, initial encounter; Y92.59 Other trade areas as the place of occurrence of the external cause
CPT/HCPCS: 29105; 29125; 73060-26-LT; 73060-LT; 73090-26-LT; 73090-LT; 99283; 99283-25

== ENCOUNTER 2022-02-09 03:07 | Emergency (ER) | payer MEDICAID ==
[2022-02-09 03:20] VITALS: BP 158/112; PULSE 118
== END 2022-02-09 04:45 | disposition home or self-care (01) ==
LOC: JD.ED 03:07
DX: S02.2XXA Fracture of nasal bones, initial encounter for closed fracture (principal); S00.83XA Contusion of other part of head, initial encounter; Z88.0 Allergy status to penicillin; Z88.1 Allergy status to other antibiotic agents; Z91.018 Allergy to other foods; Y04.2XXA Assault by strike against or bumped into by another person, initial encounter
CPT/HCPCS: 70450; 70450-26; 70486; 70486-26; 99285-25

== ENCOUNTER 2022-07-26 12:47 | Emergency (ER) | payer MEDICAID ==
[2022-07-26 13:53] VITALS: BP 162/102; PULSE 89
== END 2022-07-26 15:12 | disposition home or self-care (01) ==
LOC: JD.ED 12:47
DX: S50.12XA Contusion of left forearm, initial encounter (principal); Z88.0 Allergy status to penicillin; Z88.8 Allergy status to other drugs, medicaments and biological substances; Y04.0XXA Assault by unarmed brawl or fight, initial encounter
CPT/HCPCS: 73090-26-LT; 73090-LT; 99282; 99283

== ENCOUNTER 2023-03-20 01:59 | Emergency (ER) | payer MEDICAID ==
[2023-03-20] MEDS ORDERED: Ondansetron 4 MG/2 ML SDV IVPUSH ONE (02:54)
[2023-03-20] MEDS ORDERED: Lactated Ringers 1,000 ML IV SCH (03:00)
[2023-03-20 03:04] LABS: BASOPHILS ABSOLUTE AUTO 0.02 K/mm3 (0.01-0.08); BASOPHILS PERCENT AUTO 0.2 % (0.1-1.2); EOSINOPHILS ABSOLUTE AUTO 0.02 K/mm3 (0.04-0.36); EOSINOPHILS PERCENT AUTO 0.2 (0.7-5.8); HEMATOCRIT 42.5 % (34.1-44.9); HEMOGLOBIN 14.4 gm/dl (11.2-15.7); IMMATURE GRAN ABSOLUTE AUTO 0.06 K/mm3 (0.00-0.10); IMMATURE GRAN PERCENT AUTO 0.5 % (<=1.0); LYMPHOCYTES ABSOLUTE AUTO 1.14 K/mm3 (1.18-3.74); LYMPHOCYTES PERCENT AUTO 10.2 % (19.3-51.7); MEAN CORPUSCULAR HEMOGLOBIN 29.3 pg (25.6-32.2); MEAN CORPUSCULAR HGB CONC 33.9 g/dl (32.2-35.5); MEAN CORPUSCULAR VOLUME 86.4 fl (79.4-94.8); MONOCYTES ABSOLUTE AUTO 0.46 K/mm3 (0.24-0.36); MONOCYTES PERCENT AUTO 4.1 % (4.7-12.5); NEUTROPHILS ABSOLUTE AUTO 9.48 K/mm3 (1.56-6.13); NEUTROPHILS PERCENT AUTO 84.8 % (34.0-71.1); PLATELET COUNT,PLT 303 K/mm3 (182-369); RED BLOOD CELL COUNT 4.92 M/mm3 (3.98-5.22); WHITE BLOOD CELL COUNT,WBC 11.18 K/mm3 (3.98-10.04)
[2023-03-20 03:05] LABS: APPEARANCE,URINE CLEAR (Clear); BILIRUBIN,URINE NEGATIVE (Negative); COLOR,URINE LIGHT YELLOW (Yellow); GLUCOSE,URINE NEGATIVE (Negative); KETONES,URINE NEGATIVE (Negative); LEUKOCYTE ESTERASE,URINE 1+ (Negative); NITRITE,URINE NEGATIVE (Negative); OCCULT BLOOD,URINE NEGATIVE (Negative); PH,URINE 6.5 (5.0-8.0); PROTEIN,URINE NEGATIVE (Negative); UROBILINOGEN,URINE 0.2 (0.2-1.0)
[2023-03-20] MEDS ORDERED: Iopamidol 755 Mg/ML 100 ML Bottle IVPUSH ONE (03:13)
[2023-03-20] MEDS ORDERED: Iopamidol 755 MG/ML 150 ML Bottle IV ONE (03:14)
[2023-03-20] MEDS ORDERED: Sodium Chloride 0.9% 100 ML IV SCH (03:15)
[2023-03-20 03:23] LABS: PROTHROMBIN TIME 9.5 SECONDS (9.7-12.0)
[2023-03-20 03:23] LABS: BACTERIA,URINE FEW /hpf (FEW); MUCUS,URINE NOT SEEN /hpf (FEW); RBC,URINE 0-5 /hpf (0-5); SQUAMOUS EPITHELIAL CELLS,UR 0-5 /hpf (0-5)
[2023-03-20 03:25] LABS: PTT,PARTIAL THROMBOPLSTIN TIME 24.9 SECONDS (21.7-31.4)
[2023-03-20 03:27] LABS: A/G RATIO 0.9 (1-2); ALBUMIN 3.6 g/dl (3.4-5.0); ANION GAP 17.8 (5-15); BILIRUBIN TOTAL 0.1 mg/dL (0.2-1.0); CALCIUM 8.7 mg/dL (8.5-10.1); CREATININE 0.8 mg/dL (0.55-1.02); EST CRCL DRUG DOSING (CG) 72.65 mL/min; ETHANOL BLOOD MEDICAL 0.13 gm% (0.00); POTASSIUM,K 3.8 mEq/L (3.5-5.1); PROTEIN TOTAL,TP 7.6 g/dl (6.4-8.2)
[2023-03-20 03:33] LABS: INR < 0.93
[2023-03-20] MEDS ORDERED: Nitrofurantoin Monohydrate/Macrocrystalline 100 MG Cap PO ONE (05:22)
[2023-03-20 05:41] VITALS: BP 165/98; PULSE 85
== END 2023-03-20 05:40 | disposition home or self-care (01) ==
LOC: JD.ED 01:59
DX: S16.1XXA Strain of muscle, fascia and tendon at neck level, initial encounter (principal); S09.90XA Unspecified injury of head, initial encounter; N39.0 Urinary tract infection, site not specified; Z88.0 Allergy status to penicillin; Z88.8 Allergy status to other drugs, medicaments and biological substances; Y04.0XXA Assault by unarmed brawl or fight, initial encounter
CPT/HCPCS: 36415; 70450; 70450-26; 70498; 70498-26; 71260; 71260-26; 72125; 72125-26; 72128; 72128-26; 74177; 74177-26; 80053; 80307; 81001; 83690; 84703; 85025; 85610; 85730; 87086; 96361; 96374; 99284; 99285-25; J2405; J3490; J7120; Q9967